=== PATIENT | male | born 1935 | race Caucasian/White ===

== ENCOUNTER 2017-02-16 11:04 | Inpatient (IN) | payer MEDICARE, MEDICAID ==
[~2017-02-16] VITALS: Ht 182.9 cm; Wt 74.4 kg
[2017-02-16] VITALS (7 sets, daily range): BP systolic 167–207; BP diastolic 74–95; PULSE 69–88; RESP 16–22; TEMP 98.5–100.1; O2SAT 92–93
[~2017-02-16 11:04] MED LIST: AMLO10 PO; BACT800T5 PO; GLIP5 PO; PRAV40TA PO; PROS5TAB2 PO
--- NOTE | 2017-02-16 11:27 | PD ---
HPI Chief Complaint: Headache Time Seen by Provider: 11:09 Travel History International Travel<30 days: No Contact w/Intl Traveler<30days: No Traveled to known affect area: No History of Present Illness HPI The patient is a 81-year-old male who presents to the emergency department via EMS for headache and chest pain. The patient states he's had intermittent anterior chest pain, described as heavy, pressure, and worse with exertion. His symptoms been ongoing for several weeks and progressing. The patient states he had chest pain this morning last proximal one hour and then resolved. He does complain of chest pain that radiates down the right arm, however, complains of chronic right arm pain for the last several months. The patient also describes a headache which started last night, located over the top of the head, throbbing, associated with one episode of nausea and vomiting. The patient denies any diplopia, neck pain, or fever. The patient denies any known history of CAD, states he had a stress test and cardiac catheterization approximately 12 years ago in [place]. He does have a history of hypertension , hyperlipidemia, remote history of tobacco use. The patient states he quit smoking 25 years ago. PFSH Past Medical History Arthritis: No Asthma: No Autoimmune Disease: No Anxiety: No Depression: No Heart Rhythm Problems: No Cancer: No Cardiac Catheterization: Yes (1 STENT) Cardiovascular Problems: Yes (HTN) High Cholesterol: No Chest Pain: Yes Congestive Heart Failure: Yes COPD: Yes Diabetes: Yes Patient Takes Glucophage: No (GLIPIZIED DAILY ) Diminished Hearing: Yes ([place]) Diverticulitis: Yes Endocrine: Yes Gastrointestinal Disorders: Yes (DIVERTICULITIS ) GERD: Yes Genitourinary: Yes Hiatal Hernia: No Hypertension: Yes (NOT MEDICATED AT THIS TIME) Immune Disorder: No Implanted Vascular Access Dvce: Yes Kidney Stones: No Musculoskeletal: Yes Neurologic: No Psychiatric: No Reproductive: No Respiratory: Yes Renal Failure: No Sleep Apnea: No Thyroid Disease: No Ulcer: No Past Surgical History Abdominal Surgery: Yes (COLON RESECTION) AICD: No Arteriovenous Shunt: No Cardiac Surgery: Yes (STENT PLACEMENT) Coronary Artery Bypass Graft: No Coronary Stent: Yes (x1 stent, RCA) Ear Surgery: No Endocrine Surgery: No Eye Surgery: Yes (IMPLANTS) Genitourinary Surgery: Yes (PROSTATE) Insulin Pump: No Joint Replacement: No Neurologic Surgery: No Oral Surgery: No Pacemaker: No Thoracic Surgery: No Other Surgery: Yes Social History Alcohol Use: No Tobacco Use: No (Quit 1989) Substance Use: No Allergies-Medications (Allergen,Severity, Reaction): Coded Allergies: Codeine (Verified Allergy, Severe, Hallucinations, 02/16/17) Reported Meds & Prescriptions Reported Meds & Active Scripts Active Bactrim DS (Sulfamethoxazole-Trimethoprim DS) 1 Tab Tab 1 Tab PO BID Reported Proscar (Finasteride) 5 Mg Tab 5 Mg PO DAILY Glipizide Unknown Strength Tab 5 Mg PO BID Pravachol 40 Mg Tab 40 Mg PO HS Norvasc (Amlodipine Besylate) 10 Mg Tab 10 Mg PO DAILY Review of Systems Except as stated in HPI: all other systems reviewed are Neg General / Constitutional: No: Fever HENT: Positive: Headaches Cardiovascular: Positive: Chest Pain or Discomfort, Dyspnea on exertion, No: Diaphoresis Respiratory: Positive: Shortness of Breath Gastrointestinal: Positive: Nausea, Vomiting, No: Abdominal Pain Musculoskeletal: No: Weakness Neurologic: Positive: Headache, No: Dizziness Physical Exam Narrative GENERAL: Awake, alert, pleasant 81-year-old male who appears his stated age and is in no acute respiratory distress. SKIN: Focused skin assessment warm/dry. HEAD: Atraumatic. Normocephalic. EYES: Pupils equal and round. Pupils are 4 mm bilateral and reactive. EOMs are intact. ENT: No nasal bleeding or discharge. Mucous membranes pink and moist. NECK: Trachea midline. No JVD. No meningeal signs. CARDIOVASCULAR: Regular rate and rhythm. No murmur appreciated. RESPIRATORY: No accessory muscle use. Clear to auscultation. Breath sounds equal bilaterally. GASTROINTESTINAL: Abdomen soft, non-tender, nondistended. No rebound tenderness. MUSCULOSKELETAL: No obvious deformities. No clubbing. No cyanosis. No edema. NEUROLOGICAL: Awake and alert. No obvious cranial nerve deficits. Motor grossly within normal limits. Normal speech. Nonfocal. PSYCHIATRIC: Appropriate mood and affect; insight and judgment normal. Data Data Last Documented VS Vital Signs Date Time Temp Pulse Resp B/P Pulse Ox O2 Delivery O2 Flow Rate FiO2 02/16/17 12:48 69 16 179/80 Room Air 02/16/17 11:22 93 02/16/17 11:11 100.1 Orders Electrocardiogram (02/16/17 11:19) B-Type Natriuretic Peptide (02/16/17 11:19) Ckmb (Isoenzyme) Profile (02/16/17 11:19) Complete Blood Count With Diff (02/16/17 11:19) Comprehensive Metabolic Panel (02/16/17 11:19) Magnesium (Mg) (02/16/17 11:19) Prothrombin Time / Inr (Pt) (02/16/17 11:19) Act Partial Throm Time (Ptt) (02/16/17 11:19) Troponin I (02/16/17 11:19) Lipase (02/16/17 11:19) Chest, Single Ap (02/16/17 11:19) Ecg Monitoring (02/16/17 11:19) Bilateral Bp Monitoring (02/16/17 11:19) Iv Access Insert/Monitor (02/16/17 11:19) Oximetry (02/16/17 11:19) Oxygen Administration (02/16/17 11:19) Morphine Inj (Morphine Inj) (02/16/17 11:30) Sodium Chloride 0.9% Flush (Ns Flush) (02/16/17 11:30) Sodium Chlorid 0.9% 500 Ml Inj (Ns 500 M (02/16/17 11:30) Ondansetron Inj (Zofran Inj) (02/16/17 11:30) Labetalol Inj (Trandate Inj) (02/16/17 11:30) Ct Brain W/O Iv Contrast(Rout) (02/16/17 ) Blood Culture (02/16/17 12:03) Lactic Acid (02/16/17 12:03) Aspirin Chew (Aspirin Chew) (02/16/17 12:15) Urinalysis - C+S If Indicated (02/16/17 12:18) Influenzae A/B Antigen (02/16/17 12:18) Acetaminophen (Tylenol) (02/16/17 12:30) Ceftriaxone Inj (Rocephin Inj) (02/16/17 13:15) Azithromycin Inj (Zithromax Inj) (02/16/17 13:15) Urine Culture (02/16/17 13:03) Admit Order (Ed Use Only) (02/16/17 13:54) Labs Laboratory Tests Test 02/16/17 02/16/17 02/16/17 11:20 12:26 13:03 White Blood Count 25.8 TH/MM3 Red Blood Count 4.42 MIL/MM3 Hemoglobin 13.6 GM/DL Hematocrit 40.9 % Mean Corpuscular Volume 92.5 FL Mean Corpuscular Hemoglobin 30.8 PG Mean Corpuscular Hemoglobin 33.3 % Concent Red Cell Distribution Width 13.7 % Platelet Count 221 TH/MM3 Mean Platelet Volume 8.6 FL Neutrophils (%) (Auto) 85.7 % Lymphocytes (%) (Auto) 5.4 % Monocytes (%) (Auto) 8.5 % Eosinophils (%) (Auto) 0.2 % Basophils (%) (Auto) 0.2 % Neutrophils # (Auto) 22.1 TH/MM3 Lymphocytes # (Auto) 1.4 TH/MM3 Monocytes # (Auto) 2.2 TH/MM3 Eosinophils # (Auto) 0.1 TH/MM3 Basophils # (Auto) 0.1 TH/MM3 CBC Comment AUTO DIFF Differential Total Cells 100 Counted Neutrophils % (Manual) 89 % Lymphocytes % 1 % Monocytes % 10 % Neutrophils # (Manual) 23.0 TH/MM3 Differential Comment FINAL DIFF MANUAL Platelet Estimate NORMAL Platelet Morphology Comment NORMAL Red Cell Morphology Comment NORMAL Prothrombin Time 12.6 SEC Prothromb Time International 1.1 RATIO Ratio Activated Partial 33.1 SEC Thromboplast Time Sodium Level 136 MEQ/L Potassium Level 4.4 MEQ/L Chloride Level 100 MEQ/L Carbon Dioxide Level 24.6 MEQ/L Anion Gap 11 MEQ/L Blood Urea Nitrogen 26 MG/DL Creatinine 1.62 MG/DL Estimat Glomerular Filtration 41 ML/MIN Rate Random Glucose 149 MG/DL Calcium Level 9.5 MG/DL Magnesium Level 2.0 MG/DL Total Bilirubin 1.2 MG/DL Aspartate Amino Transf 17 U/L (AST/SGOT) Alanine Aminotransferase 20 U/L (ALT/SGPT) Alkaline Phosphatase 53 U/L Total Creatine Kinase 68 U/L Troponin I LESS THAN 0.02 NG/ML B-Type Natriuretic Peptide 127 PG/ML Total Protein 7.1 GM/DL Albumin 3.8 GM/DL Lipase 65 U/L Lactic Acid Level 1.8 mmol/L Urine Color YELLOW Urine Turbidity HAZY Urine pH 5.5 Urine Specific [place] 1.015 Urine Protein 30 mg/dL Urine Glucose (UA) NEG mg/dL Urine Ketones TRACE mg/dL Urine Occult Blood MOD Urine Nitrite NEG Urine Bilirubin NEG Urine Urobilinogen LESS THAN 2.0 MG/DL Urine Leukocyte Esterase MOD Urine RBC 107 /hpf Urine WBC 20 /hpf Urine WBC Clumps RARE Urine Amorphous Sediment RARE Urine Bacteria RARE /hpf Urine Mucus FEW /lpf Microscopic Urinalysis Comment CULTURE INDICATED MDM Medical Decision Making Medical Screen Exam Complete: Yes Emergency Medical Condition: Yes Medical Record Reviewed: Yes Interpretation(s) EKG reveals normal sinus rhythm with a rate of 76. Inverted T waves noted in lead V6. Last Impressions Chest X-Ray 02/16/17 1119 Signed Impressions: Service Date/Time: Thursday, February 16, 2017 11:34 - CONCLUSION: 1. Chronic scarring at the lung bases without significant change. 2. No acute cardiopulmonary disease. There is no evidence of pulmonary edema. Chandan Maharaj MD Head CT 02/16/17 0000 Signed Impressions: Service Date/Time: Thursday, February 16, 2017 11:36 - CONCLUSION: Negative noncontrast head CT. Chandan Maharaj MD Laboratory Tests Test 02/16/17 02/16/17 02/16/17 11:20 12:26 13:03 White Blood Count 25.8 TH/MM3 Red Blood Count 4.42 MIL/MM3 Hemoglobin 13.6 GM/DL Hematocrit 40.9 % Mean Corpuscular Volume 92.5 FL Mean Corpuscular Hemoglobin 30.8 PG Mean Corpuscular Hemoglobin 33.3 % Concent Red Cell Distribution Width 13.7 % Platelet Count 221 TH/MM3 Mean Platelet Volume 8.6 FL Neutrophils (%) (Auto) 85.7 % Lymphocytes (%) (Auto) 5.4 % Monocytes (%) (Auto) 8.5 % Eosinophils (%) (Auto) 0.2 % Basophils (%) (Auto) 0.2 % Neutrophils # (Auto) 22.1 TH/MM3 Lymphocytes # (Auto) 1.4 TH/MM3 Monocytes # (Auto) 2.2 TH/MM3 Eosinophils # (Auto) 0.1 TH/MM3 Basophils # (Auto) 0.1 TH/MM3 CBC Comment AUTO DIFF Differential Total Cells 100 Counted Neutrophils % (Manual) 89 % Lymphocytes % 1 % Monocytes % 10 % Neutrophils # (Manual) 23.0 TH/MM3 Differential Comment FINAL DIFF MANUAL Platelet Estimate NORMAL Platelet Morphology Comment NORMAL Red Cell Morphology Comment NORMAL Prothrombin Time 12.6 SEC Prothromb Time International 1.1 RATIO Ratio Activated Partial 33.1 SEC Thromboplast Time Sodium Level 136 MEQ/L Potassium Level 4.4 MEQ/L Chloride Level 100 MEQ/L Carbon Dioxide Level 24.6 MEQ/L Anion Gap 11 MEQ/L Blood Urea Nitrogen 26 MG/DL Creatinine 1.62 MG/DL Estimat Glomerular Filtration 41 ML/MIN Rate Random Glucose 149 MG/DL Calcium Level 9.5 MG/DL Magnesium Level 2.0 MG/DL Total Bilirubin 1.2 MG/DL Aspartate Amino Transf 17 U/L (AST/SGOT) Alanine Aminotransferase 20 U/L (ALT/SGPT) Alkaline Phosphatase 53 U/L Total Creatine Kinase 68 U/L Troponin I LESS THAN 0.02 NG/ML B-Type Natriuretic Peptide 127 PG/ML Total Protein 7.1 GM/DL Albumin 3.8 GM/DL Lipase 65 U/L Lactic Acid Level 1.8 mmol/L Urine Color YELLOW Urine Turbidity HAZY Urine pH 5.5 Urine Specific [place] 1.015 Urine Protein 30 mg/dL Urine Glucose (UA) NEG mg/dL Urine Ketones TRACE mg/dL Urine Occult Blood MOD Urine Nitrite NEG Urine Bilirubin NEG Urine Urobilinogen LESS THAN 2.0 MG/DL Urine Leukocyte Esterase MOD Urine RBC 107 /hpf Urine WBC 20 /hpf Urine WBC Clumps RARE Urine Amorphous Sediment RARE Urine Bacteria RARE /hpf Urine Mucus FEW /lpf Microscopic Urinalysis Comment CULTURE INDICATED Differential Diagnosis Differential diagnosis includes ACS, hypertensive urgency, hypertensive urgency , intracranial hemorrhage, tension headache, congestive heart failure, deconditioning, cardiomyopathy. Narrative Course IV was established, labs are drawn and sent, and the patient was placed on cardiac telemetry monitoring and continuous pulse oximetry monitoring. EKG was ordered and interpreted. Chest x-ray was obtained. CT of the brain was obtained as patient does have a headache with nausea/vomiting. The patient has increasing dyspnea upon exertion for the last several weeks, this may be related to ACS versus cardiomyopathy versus deconditioning. Chest x-ray reveals scarring, no acute pneumonia. White count was elevated at 25.8. Lactic acid was 1.8. The patient did have a temperature of 100.1. The patient was reevaluated at 1:30 PM, his symptoms have improved. Patient's blood pressure is now with a systolic in the 150s and diastolic in the 70s. The patient was seen Dr. Jacques, however, his insurance changed and he now goes [facility]. The patient no longer sees Dr. Jacques. Therefore, the on-call medical service was paged for admission. The patient will be admitted for complicated UTI with atypical chest pain and leukocytosis. The patient is comfortable with this plan of care and disposition. Sepsis Criteria SIRS Criteria (2 or more): WBC > 08330, < 4000 or > 10% bands Physician Communication Physician Communication I discussed the patient with Dr. Avalos who agrees with admission. Diagnosis Primary Impression: UTI (urinary tract infection) Qualified Code: N39.0 - Urinary tract infection with hematuria, site unspecified Additional Impressions: HTN (hypertension) Qualified Code: I10 - Essential hypertension Atypical chest pain Leukocytosis Qualified Code: D72.829 - Leukocytosis, unspecified type Admitting Information Admitting Physician Requests: Admit Condition: Stable Jacinto Liao MD Feb 16, 2017 11:27
[2017-02-16] MEDS ORDERED: SODIUM CHLORIDE 0.9% FLUSH 10 ML FLUSH IVF PRN ×2 (11:30→15:00)
[2017-02-16] MEDS ORDERED: MORPHINE SULFATE 4 MG/ML INJ IV PUSH ONE (11:30)
[2017-02-16] MEDS ORDERED: SODIUM CHLORID 0.9% 500 ML INJ 500 ML IV ONE (11:30)
[2017-02-16] MEDS ORDERED: LABETALOL HCL 100 MG/20 ML VIAL IV ONE (11:30)
[2017-02-16] MEDS ORDERED: ONDANSETRON HCL 4 MG/2 ML VIAL IV PUSH ONE (11:30)
[2017-02-16 11:46] LABS: AUTOMATED NEUTROPHIL # 22.1 TH/MM3 (1.8-7.7); BASOPHIL # 0.1 TH/MM3 (0-0.2); BASOPHIL % 0.2 % (0.0-2.0); EOSINOPHIL # 0.1 TH/MM3 (0-0.4); EOSINOPHIL % 0.2 % (0.0-4.0); HEMATOCRIT 40.9 % (39.0-51.0); LYMPH % 5.4 % (9.0-44.0); LYMPHOCYTE # 1.4 TH/MM3 (1.0-4.8); MEAN CELL VOLUME 92.5 FL (80.0-100.0); MEAN CORPUSCULAR HEMOGLOBIN 30.8 PG (27.0-34.0); MEAN CORPUSCULAR HGB CONC 33.3 % (32.0-36.0); MONO % 8.5 % (0.0-8.0); NEUT % 85.7 % (16.0-70.0); PLATELET COUNT 221 TH/MM3 (150-450); RED BLOOD COUNT 4.42 MIL/MM3 (4.50-5.90); RED CELL DISTRIBUTION WIDTH 13.7 % (11.6-17.2); WHITE BLOOD COUNT 25.8 TH/MM3 (4.0-11.0)
[2017-02-16 11:48] LABS: HEMO FLAGS AUTO DIFF
[2017-02-16 11:53] LABS: APTT (PATIENT) 33.1 SEC (24.3-30.1); INTERNATIONAL NORMALIZED RATIO 1.1 RATIO; PROTHROMBIN TIME - PATIENT 12.6 SEC (9.8-11.6)
--- NOTE | 2017-02-16 11:55 | RADRPT ---
EXAM DATE/TIME: 02/16/2017 11:36 [facility] COMPARISON: No previous studies available for comparison. INDICATIONS : Headache along with dizziness. Feels lightheaded. Elevated blood pressure RADIATION DOSE: 42.89 CTDIvol (mGy) MEDICAL HISTORY : Hypertension. Cardiovascular disease Diabetes mellitus type 2. SURGICAL HISTORY : None. ENCOUNTER: Initial ACUITY: 1 day PAIN SCALE: 8/10 LOCATION: cranial TECHNIQUE: Multiple contiguous axial images were obtained of the head. Using automated exposure control and adj ustment of the mA and/or kV according to patient size, radiation dose was kept as low as reasonably a chievable to obtain optimal diagnostic quality images. FINDINGS: CEREBRUM: The ventricles are normal for age. No evidence of midline shift, mass lesion, hemorrhage or acute in farction. No extra-axial fluid collections are seen. POSTERIOR FOSSA: The cerebellum and brainstem are intact. The 4th ventricle is midline. The cerebellopontine angle i s unremarkable. EXTRACRANIAL: The visualized portion of the orbits is intact. SKULL: The calvaria is intact. No evidence of skull fracture. CONCLUSION: Negative noncontrast head CT. Chandan Maharaj MD on February 16, 2017 at 11:53 Board Certified Radiologist. This report was verified electronically.
[2017-02-16 12:15] LABS: PLATELET ESTIMATE SMEAR NORMAL (NORMAL); PLATELET MORPHOLOGY NORMAL (NORMAL); POLYS (SEG NEUTROPHILS) 89 % (16-70); SCAN/DIFF FINAL DIFF MANUAL; WBC DIFF SAMPLE 100
[2017-02-16] MEDS ORDERED: ASPIRIN 81 MG CHEW TAB CHEW ONE (12:15)
--- NOTE | 2017-02-16 12:16 | RADRPT ---
EXAM DATE/TIME: 02/16/2017 11:34 [facility] COMPARISON: CHEST SINGLE AP, July 19, 2013, 17:18. INDICATIONS : Chest pain, short of breath. MEDICAL HISTORY : None. SURGICAL HISTORY : None. ENCOUNTER: Initial ACUITY: 2 days PAIN SCORE: 8/10 LOCATION: Bilateral chest FINDINGS: A single view of the chest demonstrates the lungs to be symmetrically aerated without evidence of mas s, infiltrate or effusion. There is chronic scarring again noted the lung bases without significant change. The cardiomediastinal contours are unremarkable. Osseous structures are intact. CONCLUSION: 1. Chronic scarring at the lung bases without significant change. 2. No acute cardiopulmonary disease. There is no evidence of pulmonary edema. Chandan Maharaj MD on February 16, 2017 at 12:13 Board Certified Radiologist. This report was verified electronically.
[2017-02-16 12:23] LABS: ALT (GPT) 20 U/L (12-78); ANION GAP 11 MEQ/L (5-15); AST (GOT) 17 U/L (15-37); BICARBONATE 24.6 MEQ/L (21.0-32.0); BLOOD UREA NITROGEN 26 MG/DL (7-18); CHLORIDE 100 MEQ/L (98-107); GLOMERULAR FILTRATION RATE 41 ML/MIN (>89); POTASSIUM 4.4 MEQ/L (3.5-5.1); SODIUM (NA) 136 MEQ/L (136-145)
[2017-02-16 12:26] LABS: ALKALINE PHOSPHATASE 53 U/L (45-117); TOTAL BILIRUBIN ADULT 1.2 MG/DL (0.2-1.0)
[2017-02-16 12:29] LABS: CREATINE KINASE 68 U/L (39-308)
[2017-02-16] MEDS ORDERED: ACETAMINOPHEN 325 MG TAB PO ONE (12:30)
[2017-02-16] MEDS ORDERED: AZITHROMYCIN INJ 500 MG in SODIUM CHLOR 0.9% 250 ML INJ 250 ML IV ONE (13:15)
[2017-02-16] MEDS ORDERED: cefTRIAXone INJ 1,000 MG in SODIUM CHLORIDE 0.9% INJ 100 ML IV ONE (13:15)
[2017-02-16 13:40] LABS: BACTERIA, URINE RARE /hpf; BLOOD, URINE MOD (NEG); COMMENT (UR) CULTURE INDICATED; CULTURE IF INDICATED CULTURE INDICATED; GLUCOSE,URINE NEG (NEG); KETONE, URINE TRACE mg/dL (NEG); MUCUS URINE FEW /lpf (OCC); NITRITE,URINE NEG (NEG); PH, URINE 5.5 (5.0-8.5); URINE COLOR YELLOW (YELLW/STRAW)
--- NOTE | 2017-02-16 13:47 | EKG ---
Date Performed: 02/16/2017 Time Performed: 11:22:34 PTAGE: 81 years EKG: Sinus rhythm NONSPECIFIC ST & T-WAVE ABNORMALITY BORDERLINE ECG NO PREVIOUS TRACING DOCTOR: Stanford Oakley Interpretating Date/Time 02/16/2017 13:45:12
--- NOTE | 2017-02-16 13:59 | HHI.HP ---
[facility] Primary Care Physician [facility] Admission Diagnosis complicated UTI, leukocytosis, atypical chest pain Diagnoses: International Travel<30 Days: No Contact w/Intl Traveler<30days: No Known Affected Area: No History of Present Illness 81-year-old male with history of cardiac stent in 2009 presents with headache, dizzy spells since last night. Patient states before going to bed last night he had constant 8 out of 10 nonradiating sharp pain at the top of his head. He also started feeling dizzy at about the same time. He states he felt like the room was spinning. He was not able to sleep. He has been getting dizzy for the last 3 months. He normally gets dizzy when he walks. He is not currently dizzy. He does get temporary chest pain from time to time. He complains of 7 out of 10 chest pain which occurred last night. It is in the center of his chest. Nonradiating. It lasted about 1 hour and went away. Currently not in any pain. His food service driver is Dr. Mann, but has not been able to see him for several months because of problems with his insurance. He does feel a little disoriented today. He was trying to use his cell phone and couldn't remember the numbers. Currently he is not confused. Denies headaches now. feels disoriented today. trying to use cell and couldn't figure the numbers. feels less confused now. No headache now. He denies any neck pain. (Jose Antonio Avalos MD R2) Review of Systems Constitutional: COMPLAINS OF: Fever, Dizziness, DENIES: Chills Eyes: DENIES: Blurred vision, Diplopia Respiratory: COMPLAINS OF: Shortness of breath, DENIES: Cough, Sputum production Cardiovascular: COMPLAINS OF: Chest pain (per h&p), DENIES: Palpitations Gastrointestinal: COMPLAINS OF: Abdominal pain (lower abd), DENIES: Black stools, Bloody stools, Constipation Genitourinary: COMPLAINS OF: Hematuria (if he strains or lifts heavy objects), Nocturia (2-3 times a night), DENIES: Urinary frequency, Urgency, Dysuria Musculoskeletal: COMPLAINS OF: Joint pain (right shoulder) Neurologic: COMPLAINS OF: Abnormal gait (dizzy spells when walking. ) Psychiatric: COMPLAINS OF: Confusion (Jose Antonio Avalos MD R2) Past Family Social History Past Medical History Coronary artery disease, previous stent to right coronary in 2010 Diverticulitis 20 years ago requiring bowel resection Dyslipidemia Type 2 diabetes BPH Chronic muscle spasms- occasionally takes something OTC, but not usually Past Surgical History Prostatectomy for cancer Partial colon resection for diverticulitis Cardiac catheter with stent Cataract surgery Reported Medications Reported Proscar (Finasteride) 5 Mg Tab 5 Mg PO DAILY Glipizide Unknown Strength Tab 5 Mg PO BID Pravachol 40 Mg Tab 40 Mg PO HS Norvasc (Amlodipine Besylate) 10 Mg Tab 10 Mg PO DAILY (Jose Antonio Avalos MD R2) Allergies: Coded Allergies: Codeine (Verified Allergy, Severe, Hallucinations, 02/16/17) Active Ordered Medications Active Medications Acetaminophen 650 mg 650 mg ONCE ONCE PO Last administered on 02/16/17 12:34; Admin Dose 650 MG; Start 02/16/17 at 12:30; Stop 02/16/17 at 12:31; Status DC Aspirin (Aspirin Chew) 162 mg ONCE ONCE CHEW Last administered on 02/16/17 12: 31; Admin Dose 162 MG; Start 02/16/17 at 12:15; Stop 02/16/17 at 12:16; Status DC Azithromycin/ Sodium Chloride (Zithromax Inj/ NS 250 ml Inj) 250 ml @ 250 mls/ hr ONCE ONCE IV; Start 02/16/17 at 13:15; Stop 02/16/17 at 14:14 Ceftriaxone Sodium 1000 mg/ Sodium Chloride 100 ml @ 200 mls/hr ONCE ONCE IV; Start 02/16/17 at 13:15; Stop 02/16/17 at 13:44; Status DC Labetalol HCl (Trandate Inj) 10 mg ONCE ONCE IV; Start 02/16/17 at 11:30; Stop 02/16/17 at 11:31; Status DC Morphine Sulfate (Morphine Inj) 4 mg ONCE ONCE IV PUSH Last administered on 12:32; Admin Dose 4 MG; Start 02/16/17 at 11:30; Stop 02/16/17 at 11:31 ; Status DC Ondansetron HCl (Zofran Inj) 4 mg ONCE ONCE IV PUSH Last administered on 12:31; Admin Dose 4 MG; Start 02/16/17 at 11:30; Stop 02/16/17 at 11:31; Status DC Sodium Chloride (NS 500 ml Inj) 500 ml @ 500 mls/hr ONCE ONCE IV Last administered on 02/16/17t 12:32; Admin Dose 500 MLS/HR; Start 02/16/17 at 11:30 ; Stop 02/16/17 at 12:29; Status DC Sodium Chloride 2 ml 2 ml UNSCH PRN IVF; Start 02/16/17 at 11:30 Family History Mom- no heart history Dad- no heart history Sister- from unknown cancer. Social History Lives in [facility]. Niece in [place]. Lives alone. Quit smoking in 1989. No alcohol. No illicit drugs. (Jose Antonio Avalos MD R2) Physical Exam Vital Signs Vital Signs Date Time Temp Pulse Resp B/P Pulse Ox O2 Delivery O2 Flow Rate FiO2 02/16/17 12:48 69 16 179/80 Room Air 02/16/17 12:35 75 17 204/95 Room Air 02/16/17 11:24 207/86 174/79 02/16/17 11:22 22 93 Room Air 02/16/17 11:22 93 Room Air 02/16/17 11:11 100.1 79 22 207/86 Physical Exam GENERAL: This is a well-nourished, well-developed patient, in no apparent distress. SKIN: No rashes, ecchymoses or lesions. Cool and dry. HEAD: Atraumatic. Normocephalic. No temporal or scalp tenderness. EYES: Pupils equal round and reactive. Extraocular motions intact. No scleral icterus. No injection or drainage. ENT: Nose without bleeding, purulent drainage or septal hematoma. Throat without erythema, tonsillar hypertrophy or exudate. Uvula midline. Airway patent. NECK: Trachea midline. No JVD or lymphadenopathy. Supple, nontender, no meningeal signs. CARDIOVASCULAR: Regular rate and rhythm without murmurs, gallops, or rubs. RESPIRATORY: Clear to auscultation. Breath sounds equal bilaterally. No wheezes , rales, or rhonchi. GASTROINTESTINAL: Abdomen soft, non-tender, nondistended. No hepato-splenomegaly , or palpable masses. No guarding. MUSCULOSKELETAL: Extremities without clubbing, cyanosis, or edema. No joint tenderness, effusion, or edema noted. No calf tenderness. Negative Homans sign bilaterally. NEUROLOGICAL: Awake and alert. Cranial nerves II through XII intact. Motor and sensory grossly within normal limits. Five out of 5 muscle strength in all muscle groups. Normal speech. Laboratory Laboratory Tests Test 02/16/17 02/16/17 02/16/17 11:20 12:26 13:03 White Blood Count 25.8 Red Blood Count 4.42 Hemoglobin 13.6 Hematocrit 40.9 Mean Corpuscular Volume 92.5 Mean Corpuscular Hemoglobin 30.8 Mean Corpuscular Hemoglobin 33.3 Concent Red Cell Distribution Width 13.7 Platelet Count 221 Mean Platelet Volume 8.6 Neutrophils (%) (Auto) 85.7 Lymphocytes (%) (Auto) 5.4 Monocytes (%) (Auto) 8.5 Eosinophils (%) (Auto) 0.2 Basophils (%) (Auto) 0.2 Neutrophils # (Auto) 22.1 Lymphocytes # (Auto) 1.4 Monocytes # (Auto) 2.2 Eosinophils # (Auto) 0.1 Basophils # (Auto) 0.1 CBC Comment AUTO DIFF Differential Total Cells 100 Counted Neutrophils % (Manual) 89 Lymphocytes % 1 Monocytes % 10 Neutrophils # (Manual) 23.0 Differential Comment FINAL DIFF MANUAL Platelet Estimate NORMAL Platelet Morphology Comment NORMAL Red Cell Morphology Comment NORMAL Prothrombin Time 12.6 Prothromb Time International 1.1 Ratio Activated Partial 33.1 Thromboplast Time Sodium Level 136 Potassium Level 4.4 Chloride Level 100 Carbon Dioxide Level 24.6 Anion Gap 11 Blood Urea Nitrogen 26 Creatinine 1.62 Estimat Glomerular Filtration 41 Rate Random Glucose 149 Calcium Level 9.5 Magnesium Level 2.0 Total Bilirubin 1.2 Aspartate Amino Transf 17 (AST/SGOT) Alanine Aminotransferase 20 (ALT/SGPT) Alkaline Phosphatase 53 Total Creatine Kinase 68 Troponin I LESS THAN 0.02 B-Type Natriuretic Peptide 127 Total Protein 7.1 Albumin 3.8 Lipase 65 Lactic Acid Level 1.8 Urine Color YELLOW Urine Turbidity HAZY Urine pH 5.5 Urine Specific [place] 1.015 Urine Protein 30 Urine Glucose (UA) NEG Urine Ketones TRACE Urine Occult Blood MOD Urine Nitrite NEG Urine Bilirubin NEG Urine Urobilinogen LESS THAN 2.0 Urine Leukocyte Esterase MOD Urine RBC 107 Urine WBC 20 Urine WBC Clumps RARE Urine Amorphous Sediment RARE Urine Bacteria RARE Urine Mucus FEW Microscopic Urinalysis Comment CULTURE INDICATED Date/Time Procedure Status Source Growth 02/16/17 13:03 Urine Culture Received Urine Clean Catch Pending 02/16/17 12:30 Aerobic Blood Culture Received Blood Peripheral Pending 02/16/17 12:30 Anaerobic Blood Culture Received Blood Peripheral Pending 02/16/17 12:25 Influenza Types A,B Antigen (JULIETA) - Final Complete Nasal Aspirate NEGATIVE FOR FLU A AND B ANTIGEN.... (Jose Antonio Avalos MD R2) Result Diagram: 02/16/17 1120 02/16/17 1120 Imaging Last Impressions Chest X-Ray 02/16/17 1119 Signed Impressions: Service Date/Time: Thursday, February 16, 2017 11:34 - CONCLUSION: 1. Chronic scarring at the lung bases without significant change. 2. No acute cardiopulmonary disease. There is no evidence of pulmonary edema. Chandan Maharaj MD Head CT 02/16/17 0000 Signed Impressions: Service Date/Time: Thursday, February 16, 2017 11:36 - CONCLUSION: Negative noncontrast head CT. Chandan Maharaj MD (Jose Antonio Avalos MD R2) Assessment and Plan Assessment and Plan 81-year-old male with past history of coronary artery disease including stent placement presents with a leukocytosis, urinary tract infection, questionable pneumonia. Code Status DNR Discussed Condition With Dr. Suresh Stephen (Jose Antonio Avalos MD R2) Attending Attestation THIS CASE WAS DISCUSSED WITH THE RESIDENT PHYSICIANS. I HAVE REVIEWED THE RECORD AND AGREE WITH THE ABOVE NOTE AND PLAN OF CARE WAS DISCUSSED. I HAVE AUTHORIZED THE ORDER FOR ADMISSION TO AN IN-PATIENT STATUS. (Regan Prince MD) Problem List: (1) Atypical chest pain Status: Acute Plan: AP Chest x-ray shows chronic scarring at the lung bases. Independent review concerning for right midlung pneumonia. Will obtain PA/ lateral view for clarification. Troponins negative 1. Trend troponins and EKGs 1730, 2330 Currently resolved. Antibiotics to cover for community-acquired pneumonia. Continue ceftriaxone 1 g every 24 hours (started 02/16) Continue azithromycin 500 mg daily (started 02/16) Blood cultures pending. Legionella and pneumococcal antigen pending Sputum culture pending (2) UTI (urinary tract infection) Status: Acute Plan: Urinalysis reveals positive leukocyte esterase, white blood cell clumps. Urine culture pending. Ceftriaxone as above (3) ALDA (acute kidney injury) Status: Acute Plan: Creatinine increased from the patient's baseline. Likely prerenal Normal saline 100 mL's per hour (4) Headache Status: Acute Plan: Headache and dizziness possibly resulting from current urinary tract infection. Head CT negative. Currently resolved. No meningeal symptoms. If patient continues to have headache, dizziness, consider brain MRI. (5) Dizziness Status: Acute Plan: Likely related to urinary tract infection. Expect improvement with treatment. 2-D echo ordered Physical therapy Obtain orthostatics If patient remains symptomatic, consider brain MRI (6) FEN/PPX Status: Acute Plan: Fluids: Normal saline 100 mg per hour Electrolytes: Monitor and replace when necessary Nutrition: Heart healthy diet Prophylaxis: Heparin 5000 units twice a day Chronic medical problems: Hyperlipidemia: Continue statin High blood pressure: Amlodipine 10 mg daily BPH: Finasteride 5 mg by mouth daily Diabetes: Hold home medications. Sliding scale insulin (Jose Antonio Avalos MD R2) Physician Certification 2 Midnight Certification Type: Admission for Inpatient Services Order for Inpatient Services The services are ordered in accordance with Medicare regulations or non- Medicare payer requirements, as applicable. In the case of services not specified as inpatient-only, they are appropriately provided as inpatient services in accordance with the 2-midnight benchmark. Estimated LOS (days): 2 days is the estimated time the patient will need to remain in the hospital, assuming treatment plan goals are met and no additional complications. Post-Hospital Plan: Not yet determined (Jose Antonio Avalos MD R2) Problem Qualifiers (1) UTI (urinary tract infection): Qualified Code: N39.0 - Urinary tract infection with hematuria, site unspecified Jose Antonio Avalos MD R2 Feb 16, 2017 13:59 Regan Prince MD Feb 17, 2017 10:56
[2017-02-16] MEDS ORDERED: ONDANSETRON HCL 4 MG/2 ML VIAL IVP PRN (15:00)
[2017-02-16] MEDS ORDERED: ACETAMINOPHEN 325 MG TAB PO PRN (15:00)
[2017-02-16] MEDS ORDERED: SODIUM CHLORIDE 0.9% FLUSH 10 ML FLUSH IV FLUSH PRN (15:00)
[2017-02-16] MEDS ORDERED: MAGNESIUM HYDROXIDE SUSP 30 ML CUP PO PRN (15:00)
[2017-02-16] MEDS ORDERED: NALOXONE HCL 0.4 MG/ML AMP IV PRN (15:00)
--- NOTE | 2017-02-16 15:55 | RADRPT ---
EXAM DATE/TIME: 02/16/2017 15:28 [facility] COMPARISON: CHEST SINGLE AP, February 16, 2017, 11:34. CHEST PA & LAT, May 16, 2015, 20:42. INDICATIONS : Intermittent chest pain and dizziness. MEDICAL HISTORY : Hypertension. SURGICAL HISTORY : Coronary artery stent. ENCOUNTER: Initial ACUITY: 1 month PAIN SCORE: 8/10 LOCATION: Bilateral chest FINDINGS: Moderate bibasilar parenchymal changes are evident, progressed from the study over the same day. The re is mild interstitial edema present. Heart is normal in size. There is no pneumothorax. CONCLUSION: 1. Bibasilar consolidative changes. 2. Mild interstitial edema. Eligio Conti MD FACR on February 16, 2017 at 15:48 Board Certified Radiologist. This report was verified electronically.
[2017-02-16] MEDS ORDERED: GLUCAGON 1 MG/ML VIAL OTHER PRN (16:00)
[2017-02-16] MEDS: INSULIN ASPART SUPPLEMENTAL SCALE SQ SCH ×2 (16:00→20:59)
[2017-02-16] MEDS ORDERED: DEXTROSE 50% IN WATER 50 ML VIAL(D50) IV PUSH PRN (16:00)
[2017-02-16] MEDS: SODIUM CHLOR 0.9% 1000 ML INJ 1,000 ML IV SCH ×2 (16:19→22:05)
[2017-02-16] MEDS: HEPARIN SODIUM - SQ 10,000 UNITS/ML VIAL SQ SCH (16:33)
[2017-02-16] MEDS: PRAVASTATIN SOD 40 MG TAB PO SCH (20:59)
[2017-02-16] MEDS: SODIUM CHLORIDE 0.9% FLUSH 10 ML FLUSH IVF SCH (20:59)
[2017-02-16] MEDS ORDERED: SODIUM CHLORIDE 0.9% FLUSH 10 ML FLUSH IV FLUSH SCH (21:00)
[2017-02-17] VITALS (7 sets, daily range): BP systolic 135–171; BP diastolic 60–79; PULSE 69–119; RESP 16–22; TEMP 98–99.6; O2SAT 90–96
[2017-02-17] MEDS ORDERED: hydrALAZINE HCL 10 MG TAB PO PRN (01:15)
[2017-02-17] MEDS: MORPHINE SULFATE 4 MG/ML INJ IV PUSH PRN (01:36)
[2017-02-17] MEDS: HEPARIN SODIUM - SQ 10,000 UNITS/ML VIAL SQ SCH ×2 (01:44→15:09)
[2017-02-17] MEDS: INSULIN ASPART SUPPLEMENTAL SCALE SQ SCH ×4 (06:04→20:49)
[2017-02-17] MEDS: SODIUM CHLORIDE 0.9% FLUSH 10 ML FLUSH IVF SCH ×2 (08:12→20:48)
[2017-02-17] MEDS: AZITHROMYCIN 250 MG TAB PO SCH (08:12)
[2017-02-17] MEDS: FINASTERIDE 5 MG TAB PO SCH (08:12)
[2017-02-17 10:15] LABS: AUTOMATED NEUTROPHIL # 24.8 TH/MM3 (1.8-7.7); BASOPHIL % 0.1 % (0.0-2.0); EOSINOPHIL # 0.1 TH/MM3 (0-0.4); EOSINOPHIL % 0.3 % (0.0-4.0); HEMATOCRIT 39.7 % (39.0-51.0); LYMPH % 5.7 % (9.0-44.0); LYMPHOCYTE # 1.6 TH/MM3 (1.0-4.8); MEAN CELL VOLUME 93.8 FL (80.0-100.0); MEAN CORPUSCULAR HEMOGLOBIN 30.5 PG (27.0-34.0); MEAN CORPUSCULAR HGB CONC 32.5 % (32.0-36.0); MONO % 8.2 % (0.0-8.0); NEUT % 85.7 % (16.0-70.0); PLATELET COUNT 207 TH/MM3 (150-450); RED BLOOD COUNT 4.23 MIL/MM3 (4.50-5.90); RED CELL DISTRIBUTION WIDTH 13.9 % (11.6-17.2); WHITE BLOOD COUNT 28.9 TH/MM3 (4.0-11.0)
[2017-02-17 10:22] LABS: HEMO FLAGS AUTO DIFF
--- NOTE | 2017-02-17 10:56 | HHI.FPPN ---
Subjective Remarks Patient's blood pressure was elevated overnight he continued to have a headache and was given 10 mg of hydralazine and 2 mg of morphine at approximately 1:30 in the morning. Since that time, he states that he is felt relatively well and has no complaints this morning. Further discussion with him shows that he did not take any of his blood pressure medications yesterday prior to arrival to the emergency department. His headache is nearly resolved and he denies any symptoms such as chest pain, palpitations, or shortness of breath. He remains afebrile, blood pressure is better controlled this morning and overall he states he is feeling relatively well. In summary this is an 81-year-old male presented to the emergency department with headaches, dizziness, and some confusion yesterday. He states that on the night prior to arrival, he had a constant 8/10 headache located at the top of his head associated with some dizziness. He was not able to sleep well and he states that he felt some intermittent substernal chest pain as well. The chest pain is described as substernal in the center of his chest, nonradiating and not associated with any activity or exercise. It self resolves after approximately 1 hour. At the time of arrival to the emergency department, he did not have any chest pain. As far as the confusion, this is relatively new to him and he noticed this when he was having difficulty using his cell phone. Past Medical History Coronary artery disease, previous stent to right coronary in 2009 Diverticulitis 20 years ago requiring bowel resection Dyslipidemia Type 2 diabetes BPH Chronic muscle spasms- occasionally takes something OTC, but not usually Past Surgical History Prostatectomy for cancer Partial colon resection for diverticulitis Cardiac catheter with stent Cataract surgery Family History Mom- no heart history Dad- no heart history Sister- from unknown cancer. Social History Lives in [facility]. Niece in [place]. Lives alone. Quit smoking in 1989. No alcohol. No illicit drugs Objective Vitals Vital Signs Date Time Temp Pulse Resp B/P Pulse Ox O2 Delivery O2 Flow Rate FiO2 02/17/17 08:19 74 02/17/17 08:15 Room Air 02/17/17 08:00 98.0 78 16 135/60 95 02/17/17 04:00 99.6 96 20 146/67 92 02/17/17 00:00 98.3 119 22 171/79 92 02/16/17 20:00 99.7 88 18 167/89 92 02/16/17 20:00 Room Air 02/16/17 18:00 98.5 71 18 170/74 93 02/16/17 12:48 69 16 179/80 Room Air 02/16/17 12:40 16 02/16/17 12:35 75 17 204/95 Room Air 02/16/17 11:24 207/86 174/79 02/16/17 11:22 22 93 Room Air 02/16/17 11:22 93 Room Air 02/16/17 11:11 100.1 79 22 207/86 I/O 02/16/17 02/16/17 02/16/17 02/17/17 02/17/17 02/17/17 07:00 15:00 23:00 07:00 15:00 23:00 Intake Total 240 ml 120 ml Output Total 350 ml Balance 240 ml -230 ml Intake Oral 240 ml 120 ml Output Urine Total 350 ml # Voids 1 1 # Bowel Movements 0 0 Result Diagram: 02/17/17 0901 02/16/17 1120 Imaging Last 48 hours Impressions Chest X-Ray 02/16/17 1119 Signed Impressions: Service Date/Time: Thursday, February 16, 2017 11:34 - CONCLUSION: 1. Chronic scarring at the lung bases without significant change. 2. No acute cardiopulmonary disease. There is no evidence of pulmonary edema. Chandan Maharaj MD Head CT 02/16/17 0000 Signed Impressions: Service Date/Time: Thursday, February 16, 2017 11:36 - CONCLUSION: Negative noncontrast head CT. Chandan Maharaj MD Chest X-Ray 02/16/17 0000 Signed Impressions: Service Date/Time: Thursday, February 16, 2017 15:28 - CONCLUSION: 1. Bibasilar consolidative changes. 2. Mild interstitial edema. Eligio Conti MD FACR Objective Remarks GENERAL: This is a well-nourished, well-developed patient, in no apparent distress. SKIN: No rashes, ecchymoses or lesions. Cool and dry. NECK: Trachea midline. No JVD or lymphadenopathy. CARDIOVASCULAR: Regular rate and rhythm without murmurs, gallops, or rubs. RESPIRATORY: Clear to auscultation. Breath sounds equal bilaterally. No wheezes , rales, or rhonchi. GASTROINTESTINAL: Abdomen soft, non-tender, nondistended. MUSCULOSKELETAL: Extremities without clubbing, cyanosis, or edema. NEUROLOGICAL: Awake and alert. Normal speech. A/P Assessment and Plan 81-year-old male with past history of coronary artery disease including stent placement presents with a leukocytosis, urinary tract infection, questionable pneumonia. Problem List: (1) Community acquired pneumonia Status: Acute Plan: Atypical chest pain could be related to possible community-acquired pneumonia - Chest x-ray shows bibasilar consolidative changes with mild interstitial edema ACS evaluation including cardiac troponins 3 and serial EKGs were within normal limits He is not currently in any chest pain and appears to be doing well Antibiotic for community-acquired pneumonia has been started: Rocephin 1 g IV every 24 hours Azithromycin 500 mg by mouth every 24 hours Blood cultures pending. Sputum cultures ordered and pending Legionella and pneumococcal antigen negative (2) UTI (urinary tract infection) Status: Acute Plan: Urinalysis reveals positive leukocyte esterase, white blood cell clumps. Urine culture pending. Antibiotics as below: Rocephin 1 g IV every 24 hours (02/16 - ) Azithromycin 500 mg by mouth every 24 hours (02/16 - ) (3) HTN (hypertension) Status: Acute Plan: Blood pressure elevated overnight requiring hydralazine 10 mg IV 1 Patient did not take his blood pressure medication on the day of admission Restart home blood pressure medications amlodipine 10 mg by mouth daily - Hydralazine 10 mg IV every 6 hours as needed for high blood pressure (4) ALDA (acute kidney injury) Status: Acute Plan: Creatinine increased from the patient's baseline. Likely prerenal due to acute infection - Baseline creatinine appears to be around 1.3 Normal saline 100 mL's per hour Repeat BMP pending this morning (5) Headache Status: Acute Plan: Headache and dizziness possibly resulting from elevated blood pressure and acute illness Head CT negative. Currently resolved. No meningeal symptoms. If patient continues to have headache, dizziness, consider brain MRI. (6) Dizziness Status: Acute Plan: Likely related to urinary tract infection. Expect improvement with treatment. Physical therapy Obtain orthostatics If patient remains symptomatic, consider brain MRI (7) FEN/PPX Status: Acute Plan: Fluids: Normal saline 100 mg per hour Electrolytes: Monitor and replace when necessary Nutrition: Heart healthy diet Prophylaxis: Heparin 5000 units twice a day Chronic medical problems: Hyperlipidemia: Continue statin BPH: Finasteride 5 mg by mouth daily Diabetes: Hold home medications. Sliding scale insulin Problem Qualifiers (1) UTI (urinary tract infection): Qualified Code: N39.0 - Urinary tract infection with hematuria, site unspecified (2) HTN (hypertension): Qualified Code: I10 - Essential hypertension Regan Prince MD Feb 17, 2017 10:56
[2017-02-17 11:04] LABS: ANION GAP 9 MEQ/L (5-15); AST (GOT) 17 U/L (15-37); BLOOD UREA NITROGEN 28 MG/DL (7-18); CHLORIDE 100 MEQ/L (98-107); GLOMERULAR FILTRATION RATE 39 ML/MIN (>89); POTASSIUM 4.2 MEQ/L (3.5-5.1); SODIUM (NA) 134 MEQ/L (136-145)
[2017-02-17 11:07] LABS: ALKALINE PHOSPHATASE 61 U/L (45-117); ALT (GPT) 17 U/L (12-78); TOTAL BILIRUBIN ADULT 0.9 MG/DL (0.2-1.0)
[2017-02-17] MEDS: cefTRIAXone INJ 1,000 MG in SODIUM CHLORIDE 0.9% INJ 100 ML IV SCH (11:38)
[2017-02-17] MEDS: SODIUM CHLOR 0.9% 1000 ML INJ 1,000 ML IV SCH (11:46)
[2017-02-17 12:11] LABS: BANDS 9 % (0-6); NEUTROPHIL # MANUAL DIFF 23.1 TH/MM3 (1.8-7.7); POLYS (SEG NEUTROPHILS) 71 % (16-70); WBC DIFF SAMPLE 100
[2017-02-17 12:12] LABS: PLATELET ESTIMATE SMEAR NORMAL (NORMAL); PLATELET MORPHOLOGY NORMAL (NORMAL); SCAN/DIFF FINAL DIFF MANUAL
--- NOTE | 2017-02-17 19:21 | EKG ---
Date Performed: 02/16/2017 Time Performed: 17:38:16 PTAGE: 81 years EKG: Sinus rhythm WITH FIRST DEGREE AV BLOCK NONSPECIFIC ST & T-WAVE ABNORMALITY ABNORMAL ECG PREVIOUS TRACING : 02/16/2017 11.22 Compared to prior tracing no significant change DOCTOR: Enmanuel Mann Interpretating Date/Time 02/17/2017 19:20:01
[2017-02-17] MEDS: PRAVASTATIN SOD 40 MG TAB PO SCH (20:49)
[2017-02-18] VITALS (8 sets, daily range): BP systolic 144–171; BP diastolic 65–75; PULSE 76–94; RESP 18–20; TEMP 97.9–100.4; O2SAT 91–96
[2017-02-18] MEDS: HEPARIN SODIUM - SQ 10,000 UNITS/ML VIAL SQ SCH ×2 (03:06→16:30)
[2017-02-18] MEDS: MORPHINE SULFATE 4 MG/ML INJ IV PUSH PRN (04:35)
[2017-02-18] MEDS: INSULIN ASPART SUPPLEMENTAL SCALE SQ SCH ×4 (06:16→20:51)
--- NOTE | 2017-02-18 08:13 | HHI.FF ---
Face to Face Verification Diagnosis: (1) Community acquired pneumonia Physical Therapy Order: Evaluate and Treat, Improve ambulation, Strength and gait training Home Health Nursing Order: Medical education Signs/symptoms of disease process Nursing assessment with vital signs I have seen patient Gurwinder Morales on 02/18/17. My clinical findings support the need for the requested home health care services because: Ltd mobility - disease progression Patient has SOB Limited ability to care for self High risk of falls I certify that my clinical findings support that this patient is homebound because: Unsteady gait/balance Unsafe to leave home unassisted Jose Antonio Avalos MD R2 Feb 18, 2017 08:13
--- NOTE | 2017-02-18 08:59 | HHI.FPPN ---
Subjective Remarks Patient states he is slightly better than yesterday. He continues to complain of atypical chest pain which is constant. It is located in the center of his chest, pointing to his sternum. Nonradiating. He has a "sick" feeling in the pit of the stomach. He complains of continued weakness. States his dizziness is improved. Denies fevers, chills, nausea, vomiting, diarrhea. (Jose Antonio Avalos MD R2) Objective Vitals Vital Signs Date Time Temp Pulse Resp B/P Pulse Ox O2 Delivery O2 Flow Rate FiO2 02/18/17 08:00 99.1 76 18 171/75 95 02/18/17 04:00 99.3 83 18 144/65 93 02/18/17 00:00 99.4 76 18 149/67 96 02/17/17 20:49 Nasal Cannula 3.00 02/17/17 20:00 69 02/17/17 20:00 99.2 75 18 139/64 96 02/17/17 18:02 90 Nasal Cannula 3.00 02/17/17 16:00 99.1 79 16 153/70 90 02/17/17 12:00 98.4 75 16 137/63 90 02/17/17 11:39 Nasal Cannula 2.00 I/O 02/17/17 02/17/17 02/17/17 02/18/17 02/18/17 02/18/17 07:00 15:00 23:00 07:00 15:00 23:00 Intake Total 120 ml 480 ml 240 ml 240 ml Output Total 350 ml 250 ml 350 ml Balance -230 ml 480 ml -10 ml -110 ml Intake Oral 120 ml 480 ml 240 ml 240 ml Output Urine Total 350 ml 250 ml 350 ml # Voids 1 3 # Bowel Movements 0 0 0 0 (Jose Antonio Avalos MD R2) Result Diagram: 02/17/1790002/17/17900 Objective Remarks GENERAL: This is a well-nourished, well-developed patient, in no apparent distress. SKIN: No rashes, ecchymoses or lesions. Cool and dry. NECK: Trachea midline. No JVD or lymphadenopathy. CARDIOVASCULAR: Regular rate and rhythm without murmurs, gallops, or rubs. RESPIRATORY: Clear to auscultation. Breath sounds equal bilaterally. No wheezes , rales, or rhonchi. GASTROINTESTINAL: Abdomen soft, non-tender, nondistended. MUSCULOSKELETAL: Extremities without clubbing, cyanosis, or edema. NEUROLOGICAL: Awake and alert. Normal speech. (Jose Antonio Avalos MD R2) A/P Assessment and Plan 81-year-old male being treated with antibiotics for community acquired pneumonia Discharge Planning Pending clinical improvement. Physical therapy recommends home with home health care PT (Jose Antonio Avalos MD R2) Attending Attestation Pt. examined and case discussed with resident physician I have read the above note and agree with the assessment/plan as discussed with me I was involved in all medical decision making for this patient Regan Prince MD (Regan Prince MD) Problem List: (1) Community acquired pneumonia Status: Acute Plan: Atypical chest pain could be related to possible community-acquired pneumonia - Chest x-ray shows bibasilar consolidative changes with mild interstitial edema ACS evaluation including cardiac troponins 3 and serial EKGs were within normal limits Antibiotic for community-acquired pneumonia has been started: Rocephin 1 g IV every 24 hours (started 02/16-) Azithromycin 500 mg by mouth every 24 hours (started 02/16- Blood cultures 02/16: No growth to date. Sputum cultures ordered and pending Legionella and pneumococcal antigen negative (2) UTI (urinary tract infection) Status: Acute Plan: Urinalysis reveals positive leukocyte esterase, white blood cell clumps. Urine culture 02/16: No growth to date. Antibiotics as below: Rocephin 1 g IV every 24 hours (02/16 - ) Azithromycin 500 mg by mouth every 24 hours (02/16 - ) (3) HTN (hypertension) Status: Acute Plan: Continue home blood pressure medications amlodipine 10 mg by mouth daily - Hydralazine 10 mg IV every 6 hours as needed for high blood pressure (4) ALDA (acute kidney injury) Status: Acute Plan: Creatinine increased from the patient's baseline. Likely prerenal due to acute infection - Baseline creatinine appears to be around 1.3 Normal saline 100 mL's per hour Repeat BMP pending this morning (5) Headache Status: Acute Plan: Headache and dizziness possibly resulting from elevated blood pressure and acute illness Head CT negative. Currently resolved. No meningeal symptoms. If patient continues to have headache, dizziness, consider brain MRI. (6) Dizziness Status: Acute Plan: Likely related to urinary tract infection. Expect improvement with treatment. Physical therapy [facility] wnl If patient remains symptomatic, consider brain MRI (7) FEN/PPX Status: Acute Plan: Fluids: Normal saline 125 mg per hour Electrolytes: Monitor and replace when necessary Nutrition: Heart healthy diet Prophylaxis: Heparin 5000 units twice a day Chronic medical problems: Hyperlipidemia: Continue statin BPH: Finasteride 5 mg by mouth daily Diabetes: Hold home medications. Sliding scale insulin (Jose Antonio Avalos MD R2) Problem Qualifiers (1) UTI (urinary tract infection): Qualified Code: N39.0 - Urinary tract infection with hematuria, site unspecified (2) HTN (hypertension): Qualified Code: I10 - Essential hypertension Jose Antonio Avalos MD R2 Feb 18, 2017 08:59 Regan Prince MD Feb 18, 2017 21:22
[2017-02-18] MEDS: AZITHROMYCIN 250 MG TAB PO SCH (09:30)
[2017-02-18] MEDS: SODIUM CHLOR 0.9% 1000 ML INJ 1,000 ML IV SCH ×2 (09:31→16:36)
[2017-02-18] MEDS: FINASTERIDE 5 MG TAB PO SCH (09:34)
[2017-02-18] MEDS: SODIUM CHLORIDE 0.9% FLUSH 10 ML FLUSH IVF SCH ×2 (09:35→20:52)
[2017-02-18 10:40] LABS: AUTOMATED NEUTROPHIL # 15.6 TH/MM3 (1.8-7.7); BASOPHIL % 0.2 % (0.0-2.0); EOSINOPHIL # 0.2 TH/MM3 (0-0.4); EOSINOPHIL % 1.3 % (0.0-4.0); HEMATOCRIT 35.8 % (39.0-51.0); HEMO FLAGS DIFF FINAL; LYMPH % 6.9 % (9.0-44.0); LYMPHOCYTE # 1.3 TH/MM3 (1.0-4.8); MEAN CELL VOLUME 92.6 FL (80.0-100.0); MEAN CORPUSCULAR HEMOGLOBIN 31.3 PG (27.0-34.0); MEAN CORPUSCULAR HGB CONC 33.8 % (32.0-36.0); MONO % 8.7 % (0.0-8.0); NEUT % 82.9 % (16.0-70.0); PLATELET COUNT 205 TH/MM3 (150-450); RED BLOOD COUNT 3.87 MIL/MM3 (4.50-5.90); RED CELL DISTRIBUTION WIDTH 13.5 % (11.6-17.2); WHITE BLOOD COUNT 18.8 TH/MM3 (4.0-11.0)
[2017-02-18] MEDS: cefTRIAXone INJ 1,000 MG in SODIUM CHLORIDE 0.9% INJ 100 ML IV SCH (11:55)
[2017-02-18 13:12] LABS: POTASSIUM 4.3 MEQ/L (3.5-5.1)
[2017-02-18] MEDS: PRAVASTATIN SOD 40 MG TAB PO SCH (20:51)
[2017-02-19] VITALS (9 sets, daily range): BP systolic 140–178; BP diastolic 65–86; PULSE 79–92; RESP 16–20; TEMP 98.2–100.8; O2SAT 90–97
[2017-02-19] MEDS: HEPARIN SODIUM - SQ 10,000 UNITS/ML VIAL SQ SCH ×2 (03:17→16:20)
[2017-02-19] MEDS: SODIUM CHLOR 0.9% 1000 ML INJ 1,000 ML IV SCH ×2 (03:17→09:59)
[2017-02-19] MEDS: INSULIN ASPART SUPPLEMENTAL SCALE SQ SCH ×4 (06:07→21:49)
[2017-02-19 08:49] LABS: AUTOMATED NEUTROPHIL # 14.6 TH/MM3 (1.8-7.7); BASOPHIL # 0.1 TH/MM3 (0-0.2); BASOPHIL % 0.3 % (0.0-2.0); EOSINOPHIL # 0.1 TH/MM3 (0-0.4); EOSINOPHIL % 0.7 % (0.0-4.0); HEMATOCRIT 37.7 % (39.0-51.0); HEMO FLAGS DIFF FINAL; LYMPH % 5.9 % (9.0-44.0); MEAN CELL VOLUME 92.5 FL (80.0-100.0); MEAN CORPUSCULAR HEMOGLOBIN 30.3 PG (27.0-34.0); MEAN CORPUSCULAR HGB CONC 32.8 % (32.0-36.0); MONO % 9.2 % (0.0-8.0); NEUT % 83.9 % (16.0-70.0); PLATELET COUNT 226 TH/MM3 (150-450); RED BLOOD COUNT 4.07 MIL/MM3 (4.50-5.90); RED CELL DISTRIBUTION WIDTH 13.3 % (11.6-17.2); WHITE BLOOD COUNT 17.4 TH/MM3 (4.0-11.0)
[2017-02-19 09:20] LABS: ALKALINE PHOSPHATASE 66 U/L (45-117); ALT (GPT) 22 U/L (12-78); ANION GAP 10 MEQ/L (5-15); AST (GOT) 22 U/L (15-37); BICARBONATE 23.4 MEQ/L (21.0-32.0); BLOOD UREA NITROGEN 21 MG/DL (7-18); CHLORIDE 100 MEQ/L (98-107); GLOMERULAR FILTRATION RATE 48 ML/MIN (>89); POTASSIUM 3.9 MEQ/L (3.5-5.1); SODIUM (NA) 133 MEQ/L (136-145); TOTAL BILIRUBIN ADULT 0.6 MG/DL (0.2-1.0)
--- NOTE | 2017-02-19 09:30 | HHI.FPPN ---
Subjective Remarks Patient seen and examined this morning. Patient's vitals are stable he's afebrile, on 3 L nasal cannula, saturating 96%. Walking around the room independently. States he feels better 40-60%. Denies CP or SOB. Could still present. (Ifrah Stephen MD R3) Objective Vitals Vital Signs Date Time Temp Pulse Resp B/P Pulse Ox O2 Delivery O2 Flow Rate FiO2 02/19/17 08:00 98.2 86 20 160/76 96 02/19/17 07:05 Nasal Cannula 3.00 02/19/17 04:00 99.2 87 20 157/69 94 02/19/17 03:29 Nasal Cannula 3.00 02/19/17 00:00 99.3 92 20 140/67 97 02/19/17 00:00 Nasal Cannula 3.00 02/18/17 20:51 Nasal Cannula 3.00 02/18/17 20:08 94 02/18/17 20:00 100.4 90 20 149/70 91 02/18/17 16:00 99.0 90 18 159/74 95 02/18/17 12:00 97.9 78 18 155/70 95 I/O 02/18/17 02/18/17 02/18/17 02/19/17 02/19/17 02/19/17 07:00 15:00 23:00 07:00 15:00 23:00 Intake Total 240 ml 480 ml 1606 ml 1149 ml Output Total 350 ml Balance -110 ml 480 ml 1606 ml 1149 ml Intake Oral 240 ml 480 ml 240 ml IV Total 1366 ml 1149 ml Output Urine Total 350 ml # Voids 3 2 # Bowel Movements 0 0 0 (Ifrah Stephen MD R3) Result Diagram: 02/19/17 0815 02/19/17 0815 Imaging Last Impressions Chest X-Ray 02/16/17 1119 Signed Impressions: Service Date/Time: Thursday, February 16, 2017 11:34 - CONCLUSION: 1. Chronic scarring at the lung bases without significant change. 2. No acute cardiopulmonary disease. There is no evidence of pulmonary edema. Chandan Maharaj MD Head CT 02/16/17 0000 Signed Impressions: Service Date/Time: Thursday, February 16, 2017 11:36 - CONCLUSION: Negative noncontrast head CT. Chandan Maharaj MD Objective Remarks GENERAL: This is a well-nourished, well-developed patient, in no apparent distress. SKIN: No rashes, ecchymoses or lesions. Cool and dry. NECK: Trachea midline. No JVD or lymphadenopathy. CARDIOVASCULAR: Regular rate and rhythm without murmurs, gallops, or rubs. RESPIRATORY: Clear to auscultation. Breath sounds equal bilaterally. No wheezes , rales, or rhonchi. GASTROINTESTINAL: Abdomen soft, non-tender, nondistended. MUSCULOSKELETAL: Extremities without clubbing, cyanosis, or edema. NEUROLOGICAL: Awake and alert. Normal speech. (Ifrah Stephen MD R3) A/P Assessment and Plan 81-year-old male being treated with antibiotics for community acquired pneumonia Discharge Planning D/C home tomorrow with home health. Discussed with Dr. Prince (Ifrah Stephen MD R3) Attending Attestation Pt. examined and case discussed with resident physicians I have read the above note and agree with the assessment/plan as discussed with me I was involved in all medical decision making for this patient Regan Prince MD (Regan Prince MD) Problem List: (1) Community acquired pneumonia Status: Acute Plan: Chest x-ray shows bibasilar consolidative changes with mild interstitial edema Antibiotic for community-acquired pneumonia has been started: Rocephin 1 g IV every 24 hours (started 02/16-) Azithromycin 500 mg by mouth every 24 hours (started 02/16- Blood cultures 02/16: No growth to date. Legionella and pneumococcal antigen negative Flu negative (2) UTI (urinary tract infection) Status: Acute Plan: Urinalysis reveals positive leukocyte esterase, white blood cell clumps. Urine culture 02/16: No growth to date. Antibiotics as below: Rocephin 1 g IV every 24 hours (02/16 - ) (3) HTN (hypertension) Status: Chronic Plan: Continue home blood pressure medications amlodipine 10 mg by mouth daily - Hydralazine 10 mg IV every 6 hours as needed for high blood pressure (4) ALDA (acute kidney injury) Status: Acute Plan: Improving. Creatinine increased from the patient's baseline. Likely prerenal due to acute infection - Baseline creatinine appears to be around 1.3 Normal saline 100 mL's per hour (5) Headache Status: Resolved Plan: Resolved. Head CT negative. (6) FEN/PPX Status: Acute Plan: Fluids: HLIV Electrolytes: Monitor and replace when necessary Nutrition: Heart healthy diet Prophylaxis: Heparin 5000 units twice a day Chronic medical problems: Hyperlipidemia: Continue statin BPH: Finasteride 5 mg by mouth daily Diabetes: Hold home medications. Sliding scale insulin (Ifrah Stephen MD R3) Problem Qualifiers (1) UTI (urinary tract infection): Qualified Code: N39.0 - Urinary tract infection with hematuria, site unspecified (2) HTN (hypertension): Qualified Code: I10 - Essential hypertension Ifrah Stephen MD R3 February 19, 2017 09:30 Regan Prince MD February 19, 2017 16:06
[2017-02-19] MEDS: SODIUM CHLORIDE 0.9% FLUSH 10 ML FLUSH IVF SCH ×2 (09:54→21:48)
[2017-02-19] MEDS: FINASTERIDE 5 MG TAB PO SCH (09:55)
[2017-02-19] MEDS: AZITHROMYCIN 250 MG TAB PO SCH (09:55)
[2017-02-19] MEDS: cefTRIAXone INJ 1,000 MG in SODIUM CHLORIDE 0.9% INJ 100 ML IV SCH (11:55)
[2017-02-19] MEDS: PRAVASTATIN SOD 40 MG TAB PO SCH (21:48)
[2017-02-20] MEDS: HEPARIN SODIUM - SQ 10,000 UNITS/ML VIAL SQ SCH (03:44)
[2017-02-20 04:04] VITALS: BP 148/69; PULSE 85; RESP 16; TEMP 98.9; O2SAT 93
[2017-02-20] MEDS: INSULIN ASPART SUPPLEMENTAL SCALE SQ SCH ×2 (06:10→12:36)
[2017-02-20] MEDS ORDERED: AZIT250T3 PO (07:48)
--- NOTE | 2017-02-20 07:50 | HHI.FPPN ---
Subjective Remarks Patient seen and examined this am. No overnight issues. Vitals are stable patient is afebrile. States he feels "as good as new." Denies CP or difficulty breathing. Objective Vitals Vital Signs Date Time Temp Pulse Resp B/P Pulse Ox O2 Delivery O2 Flow Rate FiO2 02/20/17 04:04 98.9 85 16 148/69 93 02/20/17 00:00 Nasal Cannula 2.00 02/19/17 23:28 100.8 79 16 140/65 93 02/19/17 21:49 Nasal Cannula 3.00 02/19/17 21:06 84 02/19/17 20:57 99.7 89 16 148/67 93 02/19/17 16:51 93 21 02/19/17 16:00 98.5 85 18 178/86 90 02/19/17 12:00 98.5 80 20 159/71 96 02/19/17 08:00 98.2 86 20 160/76 96 I/O 02/19/17 02/19/17 02/19/17 02/20/17 02/20/17 02/20/17 07:00 15:00 23:00 07:00 15:00 23:00 Intake Total 1149 ml 1574 ml 720 ml 200 ml Output Total 350 ml Balance 1149 ml 1574 ml 720 ml -150 ml Intake Oral 840 ml 720 ml 200 ml IV Total 1149 ml 734 ml Output Urine Total 350 ml # Voids 2 6 # Bowel Movements 0 2 0 Result Diagram: 02/19/17 0815 02/19/17 0815 Imaging Last Impressions Chest X-Ray 02/16/17 1119 Signed Impressions: Service Date/Time: Thursday, February 16, 2017 11:34 - CONCLUSION: 1. Chronic scarring at the lung bases without significant change. 2. No acute cardiopulmonary disease. There is no evidence of pulmonary edema. Chandan Maharaj MD Head CT 02/16/17 0000 Signed Impressions: Service Date/Time: Thursday, February 16, 2017 11:36 - CONCLUSION: Negative noncontrast head CT. Chandan Maharaj MD Objective Remarks GENERAL: This is a well-nourished, well-developed patient, in no apparent distress. SKIN: No rashes, ecchymoses or lesions. Cool and dry. NECK: Trachea midline. No JVD or lymphadenopathy. CARDIOVASCULAR: Regular rate and rhythm without murmurs, gallops, or rubs. RESPIRATORY: Clear to auscultation. Breath sounds equal bilaterally. No wheezes , rales, or rhonchi. GASTROINTESTINAL: Abdomen soft, non-tender, nondistended. MUSCULOSKELETAL: Extremities without clubbing, cyanosis, or edema. NEUROLOGICAL: Awake and alert. Normal speech. A/P Assessment and Plan 81-year-old male being treated with antibiotics for community acquired pneumonia Discharge Planning D/C home today with home health. Discussed with Jeremias and Robbie Problem List: (1) Community acquired pneumonia Status: Acute Plan: Chest x-ray shows bibasilar consolidative changes with mild interstitial edema Antibiotic for community-acquired pneumonia has been started: Rocephin 1 g IV every 24 hours (started 02/16-02/20) Azithromycin 500 mg by mouth every 24 hours (started 02/16- 02/20) will d/c on 2 more days for a total of 7 day treatment Blood cultures 02/16: No growth to date. Legionella and pneumococcal antigen negative Flu negative (2) UTI (urinary tract infection) Status: Acute Plan: Urinalysis reveals positive leukocyte esterase, white blood cell clumps. Urine culture 02/16: No growth to date. Antibiotics as below: Rocephin 1 g IV every 24 hours (02/16 -02/20 ) (3) HTN (hypertension) Status: Chronic Plan: Continue home blood pressure medications amlodipine 10 mg by mouth daily - Hydralazine 10 mg IV every 6 hours as needed for high blood pressure (4) ALDA (acute kidney injury) Status: Acute Plan: Improving. Creatinine increased from the patient's baseline. Likely prerenal due to acute infection - Baseline creatinine appears to be around 1.3 Normal saline 100 mL's per hour (5) Headache Status: Resolved Plan: Resolved. Head CT negative. (6) FEN/PPX Status: Acute Plan: Fluids: HLIV Electrolytes: Monitor and replace when necessary Nutrition: Heart healthy diet Prophylaxis: Heparin 5000 units twice a day Chronic medical problems: Hyperlipidemia: Continue statin BPH: Finasteride 5 mg by mouth daily Diabetes: Hold home medications. Sliding scale insulin Problem Qualifiers (1) UTI (urinary tract infection): Qualified Code: N39.0 - Urinary tract infection with hematuria, site unspecified (2) HTN (hypertension): Qualified Code: I10 - Essential hypertension Ifrah Stephen MD R3 February 20, 2017 07:50
[2017-02-20 08:00] VITALS: BP 165/74; PULSE 77; RESP 18; TEMP 98.3; O2SAT 95
--- NOTE | 2017-02-20 08:04 | HHI.DS ---
Discharge Summary Admission Date Feb 16, 2017 at 13:56 Discharge Date: February 20, 2017 Admitting Diagnosis complicated UTI, leukocytosis, atypical chest pain (1) Community acquired pneumonia Diagnosis: Principal Plan: Chest x-ray shows bibasilar consolidative changes with mild interstitial edema Antibiotic for community-acquired pneumonia has been started: Rocephin 1 g IV every 24 hours (started 02/16-02/20) Azithromycin 500 mg by mouth every 24 hours (started 02/16- 02/20) will d/c on 2 more days for a total of 7 day treatment Blood cultures 02/16: No growth to date. Legionella and pneumococcal antigen negative Flu negative (2) UTI (urinary tract infection) Plan: Urinalysis reveals positive leukocyte esterase, white blood cell clumps. Urine culture 02/16: No growth to date. Antibiotics as below: Rocephin 1 g IV every 24 hours (02/16 -02/20 ) (3) HTN (hypertension) Plan: Continue home blood pressure medications amlodipine 10 mg by mouth daily - Hydralazine 10 mg IV every 6 hours as needed for high blood pressure (4) ALDA (acute kidney injury) Diagnosis: Principal Plan: Improving. Creatinine increased from the patient's baseline. Likely prerenal due to acute infection - Baseline creatinine appears to be around 1.3 Normal saline 100 mL's per hour (5) Headache Plan: Resolved. Head CT negative. (6) FEN/PPX Plan: Fluids: HLIV Electrolytes: Monitor and replace when necessary Nutrition: Heart healthy diet Prophylaxis: Heparin 5000 units twice a day Chronic medical problems: Hyperlipidemia: Continue statin BPH: Finasteride 5 mg by mouth daily Diabetes: Hold home medications. Sliding scale insulin Brief History 81-year-old male with history of cardiac stent in 2009 presents with headache, dizzy spells since last night. Patient states before going to bed last night he had constant 8 out of 10 nonradiating sharp pain at the top of his head. He also started feeling dizzy at about the same time. He states he felt like the room was spinning. He was not able to sleep. He has been getting dizzy for the last 3 months. He normally gets dizzy when he walks. He is not currently dizzy. He does get temporary chest pain from time to time. He complains of 7 out of 10 chest pain which occurred last night. It is in the center of his chest. Nonradiating. It lasted about 1 hour and went away. Currently not in any pain. 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 He does feel a little disoriented today. He was trying to use his cell phone and couldn't remember the numbers. Currently he is not confused. Denies headaches now. feels disoriented today. trying to use cell and couldn't figure the numbers. feels less confused now. No headache now. He denies any neck pain. CBC/BMP: 02/19/17 0815 02/19/17 0815 Significant Findings Laboratory Tests Test 02/17/17 02/18/17 02/18/17 02/19/17 09:01 08:08 12:28 08:15 White Blood Count 28.9 TH/MM3 18.8 TH/MM3 17.4 TH/MM3 (4.0-11.0) (4.0-11.0) (4.0-11.0) Red Blood Count 4.23 MIL/MM3 3.87 MIL/MM3 4.07 MIL/MM3 (4.50-5.90) (4.50-5.90) (4.50-5.90) Hemoglobin 12.9 GM/DL 12.1 GM/DL 12.3 GM/DL (13.0-17.0) (13.0-17.0) (13.0-17.0) Neutrophils (%) (Auto) 85.7 % 82.9 % 83.9 % (16.0-70.0) (16.0-70.0) (16.0-70.0) Lymphocytes (%) (Auto) 5.7 % 6.9 % 5.9 % (9.0-44.0) (9.0-44.0) (9.0-44.0) Monocytes (%) (Auto) 8.2 % (0.0-8.0) 8.7 % (0.0-8.0) 9.2 % (0.0-8.0) Neutrophils # (Auto) 24.8 TH/MM3 15.6 TH/MM3 14.6 TH/MM3 (1.8-7.7) (1.8-7.7) (1.8-7.7) Monocytes # (Auto) 2.4 TH/MM3 1.6 TH/MM3 1.6 TH/MM3 (0-0.9) (0-0.9) (0-0.9) Neutrophils % (Manual) 71 % (16-70) Band Neutrophils % 9 % (0-6) Lymphocytes % 8 % (9-44) Monocytes % 12 % (0-8) Neutrophils # (Manual) 23.1 TH/MM3 (1.8-7.7) Sodium Level 134 MEQ/L 132 MEQ/L 133 MEQ/L (136-145) (136-145) (136-145) Blood Urea Nitrogen 28 MG/DL (7-18) 28 MG/DL (7-18) 21 MG/DL (7-18) Creatinine 1.70 MG/DL 1.52 MG/DL 1.40 MG/DL (0.60-1.30) (0.60-1.30) (0.60-1.30) Estimat Glomerular Filtration 39 ML/MIN (>89) 44 ML/MIN (>89) 48 ML/MIN (>89) Rate Random Glucose 155 MG/DL 170 MG/DL 169 MG/DL (74-106) (74-106) (74-106) Albumin 3.2 GM/DL 3.0 GM/DL (3.4-5.0) (3.4-5.0) Hematocrit 35.8 % 37.7 % (39.0-51.0) (39.0-51.0) PE at Discharge GENERAL: This is a well-nourished, well-developed patient, in no apparent distress. SKIN: No rashes, ecchymoses or lesions. Cool and dry. NECK: Trachea midline. No JVD or lymphadenopathy. CARDIOVASCULAR: Regular rate and rhythm without murmurs, gallops, or rubs. RESPIRATORY: Clear to auscultation. Breath sounds equal bilaterally. No wheezes , rales, or rhonchi. GASTROINTESTINAL: Abdomen soft, non-tender, nondistended. MUSCULOSKELETAL: Extremities without clubbing, cyanosis, or edema. NEUROLOGICAL: Awake and alert. Normal speech. Hospital Course Patient treated for PNA and UTI, UC was negative. Treated with 5 days of abx. D/C on 2 days of PO azithromycin, no complications during hospital course. Medical stable for d.c home with home healthy on 02/20. Pt Condition on Discharge: Stable Discharge Disposition: Disch w/ Home Health Serv Ifrah Stephen MD R3 February 20, 2017 08:03
[2017-02-20 08:39] VITALS: PULSE 74
[2017-02-20 09:45] LABS: AUTOMATED NEUTROPHIL # 12.3 TH/MM3 (1.8-7.7); BASOPHIL # 0.1 TH/MM3 (0-0.2); BASOPHIL % 0.4 % (0.0-2.0); EOSINOPHIL # 0.2 TH/MM3 (0-0.4); EOSINOPHIL % 1.6 % (0.0-4.0); HEMATOCRIT 35.6 % (39.0-51.0); HEMO FLAGS DIFF FINAL; LYMPH % 8.2 % (9.0-44.0); LYMPHOCYTE # 1.3 TH/MM3 (1.0-4.8); MEAN CELL VOLUME 91.9 FL (80.0-100.0); MEAN CORPUSCULAR HGB CONC 33.7 % (32.0-36.0); NEUT % 79.8 % (16.0-70.0); PLATELET COUNT 246 TH/MM3 (150-450); RED BLOOD COUNT 3.87 MIL/MM3 (4.50-5.90); WHITE BLOOD COUNT 15.4 TH/MM3 (4.0-11.0)
[2017-02-20] MEDS: FINASTERIDE 5 MG TAB PO SCH (10:22)
[2017-02-20] MEDS: AZITHROMYCIN 250 MG TAB PO SCH (10:22)
[2017-02-20] MEDS: SODIUM CHLORIDE 0.9% FLUSH 10 ML FLUSH IVF SCH (10:23)
[2017-02-20 10:31] LABS: BICARBONATE 25.6 MEQ/L (21.0-32.0)
[2017-02-20] MEDS: cefTRIAXone INJ 1,000 MG in SODIUM CHLORIDE 0.9% INJ 100 ML IV SCH (11:37)
[2017-02-20 12:00] VITALS: BP 176/74; PULSE 78; RESP 18; TEMP 97.9; O2SAT 92
== END 2017-02-20 14:35 | disposition home or self-care (01) | DRG 689 ==
LOC: NEPC 11:04 → NEDA 13:56 → N04A 18:03
PROVIDERS: ADMIT Family Medicine; ATTEND Family Medicine
DX: N39.0 Urinary tract infection, site not specified (principal); J18.9 Pneumonia, unspecified organism; N17.9 Acute kidney failure, unspecified; E11.9 Type 2 diabetes mellitus without complications; Z79.84 Long term (current) use of oral hypoglycemic drugs; R42 Dizziness and giddiness; I10 Essential (primary) hypertension; R51 Headache; E78.5 Hyperlipidemia, unspecified; N40.0 Benign prostatic hyperplasia without lower urinary tract symptoms; I25.10 Atherosclerotic heart disease of native coronary artery without angina pectoris; Z95.5 Presence of coronary angioplasty implant and graft; H91.90 Unspecified hearing loss, unspecified ear; M62.838 Other muscle spasm; Z85.46 Personal history of malignant neoplasm of prostate; Z87.891 Personal history of nicotine dependence; Z66 Do not resuscitate
CPT/HCPCS: 70450; 71010; 71020; 80048; 80053; 81001; 82550; 82948; 83605; 83690; 83735; 83880; 84484; 85007; 85025; 85027; 85060; 85610; 85730; 87040; 87086; 87449; 87804; 93005; 94150; 94620; 96374; 96375; J0456; J0696; J1644; J1815; J2270; J2405; J7030; J7040; J7050

== ENCOUNTER 2017-11-11 07:10 | Inpatient (IN) | payer MEDICAID, MEDICARE, OTHER ==
[~2017-11-11] VITALS: Ht 180.3 cm; Wt 74.6 kg
[2017-11-11] VITALS (7 sets, daily range): BP systolic 126–155; BP diastolic 59–72; PULSE 62–86; RESP 12–20; TEMP 97.4–98.3; O2SAT 91–100
[~2017-11-11 07:10] MED LIST changes: +AZIT250T3 PO; -BACT800T5 PO
--- NOTE | 2017-11-11 07:29 | PD ---
HPI Chief Complaint: Cold / Flu Symptoms Time Seen by Provider: 07:19 Travel History International Travel<30 days: No Contact w/Intl Traveler<30days: No Traveled to known affect area: No History of Present Illness HPI The patient is a 81-year-old male who presents to the emergency department for multiple complaints. The patient notes a one-week history of chest pain which he describes as dull, constant, anterior, and bilateral. He denies any shortness of breath associated with chest pain and denies any exertional symptoms. He also complains of mild headache, dizziness, his abdomen "churning ", and fever. The patient states he took Tylenol at home and broke out in a sweat broke his fever. He also complains of a dry mostly nonproductive cough without any postnasal drip. The patient does have a history of bladder and prostate cancer, is going to resume chemotherapy in December per his report. He is followed at the [place] [facility]. He did receive an influenza vaccination this year. He denies any vomiting or diarrhea. Symptoms are moderate, onset one week, and there are no current alleviating factors. PFSH Past Medical History Arthritis: No Asthma: No Autoimmune Disease: No Anxiety: No Depression: No Heart Rhythm Problems: No Cancer: No Cardiac Catheterization: Yes (1 STENT) Cardiovascular Problems: Yes (HTN) High Cholesterol: No Chest Pain: Yes Congestive Heart Failure: No COPD: No Diabetes: Yes Diminished Hearing: Yes ([place]) Diverticulitis: Yes Endocrine: Yes Gastrointestinal Disorders: Yes (DIVERTICULITIS ) GERD: Yes Genitourinary: Yes Hiatal Hernia: No Hypertension: Yes (NOT MEDICATED AT THIS TIME) Immune Disorder: No Implanted Vascular Access Dvce: Yes Kidney Stones: No Musculoskeletal: Yes Neurologic: No Psychiatric: No Reproductive: No Respiratory: No Renal Failure: No Sleep Apnea: No Thyroid Disease: No Ulcer: No Past Surgical History Abdominal Surgery: Yes (COLON RESECTION) AICD: No Arteriovenous Shunt: No Cardiac Surgery: Yes (STENT PLACEMENT) Coronary Artery Bypass Graft: No Coronary Stent: Yes (x1 stent, RCA) Ear Surgery: No Endocrine Surgery: No Eye Surgery: Yes (IMPLANTS) Genitourinary Surgery: Yes (PROSTATE) Insulin Pump: No Joint Replacement: No Neurologic Surgery: No Oral Surgery: No Pacemaker: No Thoracic Surgery: No Other Surgery: Yes Social History Alcohol Use: No Tobacco Use: No (Quit 1989) Substance Use: No Allergies-Medications (Allergen,Severity, Reaction): Coded Allergies: codeine (Unverified Allergy, Severe, Hallucinations, 06/06/17) Reported Meds & Prescriptions Reported Meds & Active Scripts Active Azithromycin 250 Mg Tab 500 Mg PO DAILY Reported Proscar (Finasteride) 5 Mg Tab 5 Mg PO DAILY Glipizide Unknown Strength Tab 5 Mg PO BID Pravachol 40 Mg Tab 40 Mg PO HS Norvasc (Amlodipine Besylate) 10 Mg Tab 10 Mg PO DAILY Review of Systems Except as stated in HPI: all other systems reviewed are Neg General / Constitutional: Positive: Fever HENT: Positive: Headaches, Lightheadedness Cardiovascular: Positive: Chest Pain or Discomfort Respiratory: Positive: Cough, No: Shortness of Breath Gastrointestinal: Positive: Abdominal Pain (intermittent "churning "), No: Nausea, Vomiting, Diarrhea Genitourinary: Positive: Other (history of bladder and prostate cancer), No: Dysuria Musculoskeletal: No: Myalgias Neurologic: Positive: Dizziness Physical Exam Narrative GENERAL: Awake, alert, very pleasant 81-year-old male who appears his stated age is in no acute respiratory distress. SKIN: Focused skin assessment warm/dry. HEAD: Atraumatic. Normocephalic. EYES: No injection or drainage. ENT: No nasal bleeding or discharge. Mucous membranes pink and moist. Oropharynx reveals cobblestoning but no exudate. NECK: Trachea midline. No JVD. CARDIOVASCULAR: Regular rate and rhythm. Holosystolic murmur noted. RESPIRATORY: No accessory muscle use. Clear to auscultation. Breath sounds equal bilaterally. GASTROINTESTINAL: Abdomen soft, non-tender, nondistended. No rebound tenderness. No guarding or rigidity. MUSCULOSKELETAL: No obvious deformities. No clubbing. No cyanosis. No edema. NEUROLOGICAL: Awake and alert. No obvious cranial nerve deficits. Motor grossly within normal limits. Normal speech. PSYCHIATRIC: Appropriate mood and affect; insight and judgment normal. Data Data Last Documented VS Vital Signs Date Time Temp Pulse Resp B/P (MAP) Pulse Ox O2 Delivery O2 Flow Rate FiO2 11/11/17 07:43 100 Room Air 11/11/17 07:37 11/11/17 07:22 62 18 11/11/17 07:17 98.1 Orders Orders Electrocardiogram (11/11/17 07:24) B-Type Natriuretic Peptide (11/11/17 07:24) Ckmb (Isoenzyme) Profile (11/11/17 07:24) Complete Blood Count With Diff (11/11/17 07:24) Comprehensive Metabolic Panel (11/11/17 07:24) Magnesium (Mg) (11/11/17 07:24) Prothrombin Time / Inr (Pt) (11/11/17 07:24) Act Partial Throm Time (Ptt) (11/11/17 07:24) Troponin I (11/11/17 07:24) Chest, Single Ap (11/11/17 07:24) Ecg Monitoring (11/11/17 07:24) Bilateral Bp Monitoring (11/11/17 07:24) Iv Access Insert/Monitor (11/11/17 07:24) Oximetry (11/11/17 07:24) Oxygen Administration (11/11/17 07:24) Aspirin Chew (Aspirin Chew) (11/11/17 07:30) Sodium Chloride 0.9% Flush (Ns Flush) (11/11/17 07:30) Sodium Chlorid 0.9% 500 Ml Inj (Ns 500 M (11/11/17 07:30) Urinalysis - C+S If Indicated (11/11/17 07:24) Influenzae A/B Antigen (11/11/17 07:24) Ceftriaxone Inj (Rocephin Inj) (11/11/17 08:00) Azithromycin Inj (Zithromax Inj) (11/11/17 08:00) Ct Thorax/ Chest Wo Iv Contras (11/11/17 ) Lactic Acid (11/11/17 08:54) Blood Culture (11/11/17 08:54) Admit Order (Ed Use Only) (11/11/17 09:28) Labs Laboratory Tests Test 11/11/17 07:30 11/11/17 09:10 White Blood Count 19.3 TH/MM3 Red Blood Count 4.27 MIL/MM3 Hemoglobin 13.3 GM/DL Hematocrit 40.3 % Mean Corpuscular Volume 94.5 FL Mean Corpuscular Hemoglobin 31.2 PG Mean Corpuscular Hemoglobin Concent 33.0 % Red Cell Distribution Width 13.1 % Platelet Count 203 TH/MM3 Mean Platelet Volume 8.0 FL Neutrophils (%) (Auto) 78.7 % Lymphocytes (%) (Auto) 8.4 % Monocytes (%) (Auto) 9.2 % Eosinophils (%) (Auto) 3.3 % Basophils (%) (Auto) 0.4 % Neutrophils # (Auto) 15.2 TH/MM3 Lymphocytes # (Auto) 1.6 TH/MM3 Monocytes # (Auto) 1.8 TH/MM3 Eosinophils # (Auto) 0.6 TH/MM3 Basophils # (Auto) 0.1 TH/MM3 CBC Comment DIFF FINAL Differential Comment Prothrombin Time 10.8 SEC Prothromb Time International Ratio 1.1 RATIO Activated Partial Thromboplast Time 27.7 SEC Blood Urea Nitrogen 23 MG/DL Creatinine 1.59 MG/DL Random Glucose 193 MG/DL Total Protein 7.0 GM/DL Albumin 4.0 GM/DL Calcium Level 8.8 MG/DL Magnesium Level 2.2 MG/DL Alkaline Phosphatase 64 U/L Aspartate Amino Transf (AST/SGOT) 14 U/L Alanine Aminotransferase (ALT/SGPT) 25 U/L Total Bilirubin 0.9 MG/DL Sodium Level 135 MEQ/L Potassium Level 3.9 MEQ/L Chloride Level 102 MEQ/L Carbon Dioxide Level 25.9 MEQ/L Anion Gap 7 MEQ/L Estimat Glomerular Filtration Rate 42 ML/MIN Total Creatine Kinase 60 U/L Troponin I LESS THAN 0.02 NG/ML B-Type Natriuretic Peptide 68 PG/ML MDM Medical Decision Making Medical Screen Exam Complete: Yes Emergency Medical Condition: Yes Medical Record Reviewed: Yes Interpretation(s) EKG reveals sinus bradycardia with a heart rate of 57. Nonspecific ST depression. Chest x-ray reveals no acute cardiopulmonary disease. Differential Diagnosis Differential diagnosis includes viral syndrome, influenza, pneumonia, bronchitis , acute coronary syndrome, pulmonary edema, pleural effusion, UTI, pyelonephritis, complicated UTI, dehydration, hyponatremia. Narrative Course IV was established, labs are drawn and sent, and the patient was placed on cardiac telemetry monitoring and continuous pulse oximetry monitoring. EKG was ordered and interpreted. Chest x-ray was obtained. The patient received aspirin 81 mg orally and 500 cc of normal saline. Chest x-ray read as negative per radiology, however, there appears to be a possible early right pneumonia. Patient's white count was 19.3, therefore, patient was administered Rocephin 1 g intravenously and Zithromax 500 mg intravenously to cover for community acquired pneumonia. Sepsis Criteria SIRS Criteria (2 or more): WBC > 33726, < 4000 or > 10% bands Sepsis Criteria (SIRS+source): Infect source susp/known Physician Communication Physician Communication The on-call medical team was paged for admission. I discussed the patient with the residents who agreed with admission to Dr. Dickerson. Diagnosis Primary Impression: Community acquired pneumonia Qualified Codes: J18.1 - Lobar pneumonia, unspecified organism Additional Impressions: ALDA (acute kidney injury) Leukocytosis Qualified Codes: D72.829 - Elevated white blood cell count, unspecified Condition: Stable Jacinto Liao MD Nov 11, 2017 07:29
[2017-11-11] MEDS ORDERED: SODIUM CHLORID 0.9% 500 ML INJ 500 ML IV ONE (07:30)
[2017-11-11] MEDS ORDERED: SODIUM CHLORIDE 0.9% FLUSH 10 ML FLUSH IVF PRN (07:30)
[2017-11-11] MEDS ORDERED: ASPIRIN 81 MG CHEW TAB PO ONE (07:30)
--- NOTE | 2017-11-11 07:41 | RADRPT ---
EXAM DATE/TIME: 11/11/2017 07:29 [facility] COMPARISON: CHEST PA & LAT, February 16, 2017, 15:28. INDICATIONS : Shortness of breath. Chest pain. MEDICAL HISTORY : Hypertension. Cardiovascular disease. SURGICAL HISTORY : None. ENCOUNTER: Initial ACUITY: 2 weeks PAIN SCORE: 2/10 LOCATION: Bilateral chest FINDINGS: The lungs are clear without infiltrate, nodule, or mass. There is no appreciable pleural effusion fo r technique. Heart and mediastinum are unremarkable. CONCLUSION: No acute cardiopulmonary disease. Martin Black MD on November 11, 2017 at 7:39 Board Certified Radiologist. This report was verified electronically.
[2017-11-11 07:55] LABS: AUTOMATED NEUTROPHIL # 15.2 TH/MM3 (1.8-7.7); BASOPHIL # 0.1 TH/MM3 (0-0.2); BASOPHIL % 0.4 % (0.0-2.0); EOSINOPHIL # 0.6 TH/MM3 (0-0.4); EOSINOPHIL % 3.3 % (0.0-4.0); HEMATOCRIT 40.3 % (39.0-51.0); HEMOGLOBIN 13.3 GM/DL (13.0-17.0); LYMPH % 8.4 % (9.0-44.0); LYMPHOCYTE # 1.6 TH/MM3 (1.0-4.8); MEAN CELL VOLUME 94.5 FL (80.0-100.0); MEAN CORPUSCULAR HEMOGLOBIN 31.2 PG (27.0-34.0); MONO % 9.2 % (0.0-8.0); MONOCYTE # 1.8 TH/MM3 (0-0.9); NEUT % 78.7 % (16.0-70.0); PLATELET COUNT 203 TH/MM3 (150-450); RED BLOOD COUNT 4.27 MIL/MM3 (4.50-5.90); RED CELL DISTRIBUTION WIDTH 13.1 % (11.6-17.2); WHITE BLOOD COUNT 19.3 TH/MM3 (4.0-11.0)
[2017-11-11] MEDS ORDERED: AZITHROMYCIN INJ 500 MG in SODIUM CHLOR 0.9% 250 ML INJ 250 ML IV ONE (08:00)
[2017-11-11] MEDS ORDERED: cefTRIAXone INJ 1,000 MG in SODIUM CHLORIDE 0.9% INJ 100 ML IV ONE (08:00)
[2017-11-11 08:10] LABS: ALT (GPT) 25 U/L (12-78); AST (GOT) 14 U/L (15-37); BICARBONATE 25.9 MEQ/L (21.0-32.0); BLOOD UREA NITROGEN 23 MG/DL (7-18); CALCIUM 8.8 MG/DL (8.5-10.1); CHLORIDE 102 MEQ/L (98-107); CREATININE 1.59 MG/DL (0.60-1.30); GLOMERULAR FILTRATION RATE 42 ML/MIN (>89); GLUCOSE,RANDOM 193 MG/DL (74-106); INTERNATIONAL NORMALIZED RATIO 1.1 RATIO; MAGNESIUM 2.2 MG/DL (1.5-2.5); PROTHROMBIN TIME - PATIENT 10.8 SEC (9.8-11.6); SODIUM (NA) 135 MEQ/L (136-145)
[2017-11-11 08:14] LABS: ALKALINE PHOSPHATASE 64 U/L (45-117); TOTAL BILIRUBIN ADULT 0.9 MG/DL (0.2-1.0); TROPONIN I LESS THAN 0.02 NG/ML (0.02-0.05)
--- NOTE | 2017-11-11 08:50 | RADRPT ---
EXAM DATE/TIME: 11/11/2017 08:10 [facility] COMPARISON: CT ABDOMEN & PELVIS W CONTRAST, June 06, 2015, 19:09. INDICATIONS : Substernal chest pain for two days. RADIATION DOSE: 6.66 CTDIvol (mGy) MEDICAL HISTORY : Cardiovascular disease. Hypertension. Diverticulitis. Diabetes SURGICAL HISTORY : Colon resection. Coronary stents, prostate, ENCOUNTER: Initial ACUITY: 2 days PAIN SCALE: 4/10 LOCATION: substernal chest TECHNIQUE: Volumetric scanning of the chest was performed. Using automated exposure control and adjustment of t he mA and/or kV according to patient size, radiation dose was kept as low as reasonably achievable to obtain optimal diagnostic quality images. DICOM format image data is available electronically for r eview and comparison. Follow-up recommendations for detected pulmonary nodules are based at a minimum on nodule size and pa tient risk factors according to Fleischner Society Guidelines. FINDINGS: There are scarring in the apices and COPD changes are seen with focal airspace consolidation rig ht middle lobe characteristic of pneumonia. There are small lymph nodes in the mediastinum most likel y benign. Coronary artery calcifications are seen typically seen with CAD and need to be evaluated cl inically. There are atherosclerotic calcifications of the aorta due to chronic atherosclerotic diseas e. Approximate 7.2 cm simple cyst is present in the right kidney not changed since 2014. The gallblad guy demonstrates multiple stones without gallbladder wall thickening, or pericholecystic fluid. CONCLUSION: Right middle lobe pneumonia. Martin Black MD on November 11, 2017 at 8:42 Board Certified Radiologist. This report was verified electronically.
--- NOTE | 2017-11-11 09:54 | HHI.HP ---
[facility] Service Family Medicine Primary Care Physician [facility] Admission Diagnosis right middle lobe pneumonia, acute kidney injury, leukocytosis Diagnoses: Chief Complaint: flu like symptoms International Travel<30 Days: No Contact w/Intl Traveler<30days: No Known Affected Area: No History of Present Illness Mr Morales is an 81YO male who is followed by the PA (can't recall his PCP name ) with PMHx HTN, DM type 2, HLD, BPH, and CVD s/p posterior heart stent placed in 1989 who presents today for a week of cold and flu-like sxs. Approximately 7 days ago, he started with being sick to his stomach with nausea, queasiness and headache, but no diarrhea or vomiting. One to two days later he began to have intermittent chest pain that was substernal, dull, and bilateral but without radiation or diaphoresis, and then with head congestion and minor rhinorrhea. During the interview he denies CP at the moment, doesn't have pain with deep inspiration, but has a small occasional non-productive cough. At home he had subjective fever but after taking tylenol he measured his temp at 98.8. He manages his DM type 2 with only glipizide 5mg bid. A look at his most recent A1C in 2013 is 6.7 and Baseline Cr is ~1.3-1.5. He admits he has some hematuria on occasion and urinary frequency. He takes amlodipine and pravastatin for his HTN. He also takes OTC vitamin C and B12. Although he has been diagnosed with BPH, his PCP recently stopped his finisteride. He is a former smoker who quit in 1989 and denies COPD or home O2 requirement. Denies being SOB except with exertion, V/D, constipation, and DVT pain. He does state he has black stools due to taking iron tablets but isn't sure whether he has anemia. His last colonoscopy was in summer 2016 with 5 polyps removed. He says his bowel movements have not been the same since. (Jamal De La Fuente MD R1) Review of Systems Constitutional: COMPLAINS OF: Fever, Dizziness, DENIES: Chills Eyes: DENIES: Blurred vision, Diplopia, Vision loss Ears, nose, mouth, throat: COMPLAINS OF: Nasal discharge (slight), Running Nose , DENIES: Tinnitus, Hearing loss, Oral lesions, Throat pain, Hoarseness, Ear Pain, Sinus Pain Respiratory: COMPLAINS OF: Cough, Shortness of breath (only with exertion), DENIES: Wheezing, Sputum production Cardiovascular: COMPLAINS OF: Chest pain (intermittent), Dyspnea on Exertion, DENIES: Palpitations, Syncope, Lower Extremity Edema Gastrointestinal: COMPLAINS OF: Abdominal pain, Black stools (takes iron tablets), Nausea, DENIES: Bloody stools, Constipation, Diarrhea, Vomiting Genitourinary: COMPLAINS OF: Urinary frequency, Urgency, Hematuria (occasional) , Nocturia (x2 a night), DENIES: Urinary incontinence Musculoskeletal: DENIES: Joint pain, Muscle aches Integumentary: DENIES: Abnormal pigmentation, Rash Hematologic/lymphatic: DENIES: Lymphadenopathy Neurologic: COMPLAINS OF: Headache, DENIES: Localized weakness, Paresthesias, Seizures Psychiatric: DENIES: Anxiety (Jamal De La Fuente MD R1) Past Family Social History Past Medical History HTN DM type 2 HLD BPH CVD s/p stent placement 2009 Past Surgical History Diverticulitis - took out part of colon and bladder Has stent in proximal RCA 2010 bilateral cataract surgery colonoscopy x2 last one in April 2017 - took out 5 polyps Reported Medications Reported Meds & Active Scripts Active Azithromycin 250 Mg Tab 500 Mg PO DAILY Reported Proscar (Finasteride) 5 Mg Tab 5 Mg PO DAILY Glipizide Unknown Strength Tab 5 Mg PO BID Pravachol 40 Mg Tab 40 Mg PO HS Norvasc (Amlodipine Besylate) 10 Mg Tab 10 Mg PO DAILY (Jamal De La Fuente MD R1) Allergies: Coded Allergies: codeine (Unverified Allergy, Severe, Hallucinations, 06/06/17) Active Ordered Medications Current Medications Medications (Trade) Dose Ordered Sig/Jhon Route Start Time Stop Time Status Last Admin (NS Flush) 2 ml UNSCH PRN IVF 11/11/17 07:30 Family History Father - in 68 YOA from cirrhosis 2/2 EtOH abuse Mother - at 38 YOA from TB [employer] Social History EtOH - none Tobacco - none, former smoker quit in 1989 Drugs - none Both brothers were alcoholics Lives alone; in 2007 after 28 yrs of marriage (Jamal De La Fuente MD R1) Physical Exam Vital Signs Vital Signs Date Time Temp Pulse Resp B/P (MAP) Pulse Ox O2 Delivery O2 Flow Rate FiO2 11/11/17 07:43 100 Room Air 11/11/17 07:37 100 Room Air 11/11/17 07:37 100 Room Air 11/11/17 07:22 62 18 126/72 (90) 99 11/11/17 07:17 98.1 62 12 142/66 (91) 100 Physical Exam GENERAL: This is a well-nourished, well-developed elderly male in no apparent distress sitting up in bed. SKIN: No rashes, ecchymoses or lesions. Cool and dry. HEAD: Atraumatic. Normocephalic. EYES: Pupils equal round and reactive. Extraocular motions intact. No scleral icterus. No injection or drainage. ENT: Nose without bleeding, drainage or rhinorrhea. Throat without erythema, tonsillar hypertrophy or exudate. Uvula midline. Airway patent. MMM. NECK: Trachea midline. No lymphadenopathy. Supple, nontender, no meningeal signs. CARDIOVASCULAR: Regular rate and rhythm without murmur, gallop, or rub. RESPIRATORY: Clear to auscultation. Breath sounds equal bilaterally. No wheezes , rales, or rhonchi. GASTROINTESTINAL: Abdomen soft, non-tender, nondistended. No hepato-splenomegaly , or palpable masses. No guarding. MUSCULOSKELETAL: Extremities without clubbing, cyanosis, or edema. No joint tenderness, effusion, or edema noted. No calf tenderness. NEUROLOGICAL: Awake and alert. Cranial nerves II through XII intact. Motor and sensory grossly within normal limits. Normal speech. Laboratory Laboratory Tests Test 11/11/17 07:30 11/11/17 09:10 White Blood Count 19.3 Red Blood Count 4.27 Hemoglobin 13.3 Hematocrit 40.3 Mean Corpuscular Volume 94.5 Mean Corpuscular Hemoglobin 31.2 Mean Corpuscular Hemoglobin Concent 33.0 Red Cell Distribution Width 13.1 Platelet Count 203 Mean Platelet Volume 8.0 Neutrophils (%) (Auto) 78.7 Lymphocytes (%) (Auto) 8.4 Monocytes (%) (Auto) 9.2 Eosinophils (%) (Auto) 3.3 Basophils (%) (Auto) 0.4 Neutrophils # (Auto) 15.2 Lymphocytes # (Auto) 1.6 Monocytes # (Auto) 1.8 Eosinophils # (Auto) 0.6 Basophils # (Auto) 0.1 CBC Comment DIFF FINAL Differential Comment Prothrombin Time 10.8 Prothromb Time International Ratio 1.1 Activated Partial Thromboplast Time 27.7 Blood Urea Nitrogen 23 Creatinine 1.59 Random Glucose 193 Total Protein 7.0 Albumin 4.0 Calcium Level 8.8 Magnesium Level 2.2 Alkaline Phosphatase 64 Aspartate Amino Transf (AST/SGOT) 14 Alanine Aminotransferase (ALT/SGPT) 25 Total Bilirubin 0.9 Sodium Level 135 Potassium Level 3.9 Chloride Level 102 Carbon Dioxide Level 25.9 Anion Gap 7 Estimat Glomerular Filtration Rate 42 Total Creatine Kinase 60 Troponin I LESS THAN 0.02 B-Type Natriuretic Peptide 68 Date/Time Source Procedure Growth Status 11/11/17 09:10 Blood Peripheral Aerobic Blood Culture Pending Received 11/11/17 09:10 Blood Peripheral Anaerobic Blood Culture Pending Received 11/11/17 07:32 Nasal Aspirate Influenza Types A,B Antigen (JULIETA) - Final NEGATIVE FOR FLU A AND B ANTIGEN.... Complete (Jamal De La Fuente MD R1) Result Diagram: 11/11/1772911/11/1730 Imaging Last Impressions Chest X-Ray 11/11/1724 Signed Impressions: Service Date/Time: Saturday, November 11, 2017 07:29 - CONCLUSION: No acute cardiopulmonary disease. Martin Black MD Renal Ultrasound 11/11/17 0000 Signed Impressions: Service Date/Time: Saturday, November 11, 2017 12:36 - CONCLUSION: 1. Echogenic kidneys which can be seen with medical renal disease. 2. Bilateral renal cysts. Echogenic area within the base of the bladder of uncertain etiology measuring 7.1 cm. No color flow noted. This could be related to protruding prostate gland , thrombus or other debris. Clinical correlation. Wade Beatty MD Chest CT 11/11/17 0000 Signed Impressions: Service Date/Time: Saturday, November 11, 2017 08:10 - CONCLUSION: Right middle lobe pneumonia. Martin Black MD (Jamal De La Fuente MD R1) Septic Shock Reassessment Septic shock perfusion: reassessment completed (Jamal De La Fuente MD R1) Caprini VTE Risk Assessment Caprini VTE Risk Assessment: Mod/High Risk (score >= 2) Caprini Risk Assessment Model Point Value = 1 Point Value = 2 Point Value = 3 Point Value = 5 Age 41-60 Minor surgery BMI > 25 kg/m2 Swollen legs Varicose veins or History of unexplained or recurrent spontaneous Oral contraceptives or hormone replacement Sepsis (< 1 month) Serious lung disease, including pneumonia (< 1 month) Abnormal pulmonary function Acute myocardial infarction Congestive heart failure (< 1 month) History of inflammatory bowel disease Medical patient at bed rest Age 61-74 Arthroscopic surgery Major open surgery (> 45 min) Laparoscopic surgery (> 45 min) Malignancy Confined to bed (> 72 hours) Immobilizing plaster cast Central venous access Age >= 75 History of VTE Family history of VTE Factor V Leiden Prothrombin [id number] Lupus anticoagulant Anticardiolipin antibodies Elevated serum homocysteine Heparin-induced thrombocytopenia Other congenital or acquired thrombophilia Stroke (< 1 month) Elective arthroplasty Hip, pelvis, or leg fracture Acute spinal cord injury (< 1 month) Prophylaxis Regimen Total Risk Factor Score Risk Level Prophylaxis Regimen 0-1 Low Early ambulation 2 Moderate Order ONE of the following: *Sequential Compression Device (SCD) *Heparin 5000 units SQ BID 3-4 Higher Order ONE of the following medications: *Heparin 5000 units SQ TID *Enoxaparin/Lovenox 40 mg SQ daily (WT < 150 kg, CrCl > 30 mL/min) *Enoxaparin/Lovenox 30 mg SQ daily (WT < 150 kg, CrCl > 10-29 mL/min) *Enoxaparin/Lovenox 30 mg SQ BID (WT < 150 kg, CrCl > 30 mL/min) AND/OR *Sequential Compression Device (SCD) 5 or more Highest Order ONE of the following medications: *Heparin 5000 units SQ TID (Preferred with Epidurals) *Enoxaparin/Lovenox 40 mg SQ daily (WT < 150 kg, CrCl > 30 mL/min) *Enoxaparin/Lovenox 30 mg SQ daily (WT < 150 kg, CrCl > 10-29 mL/min) *Enoxaparin/Lovenox 30 mg SQ BID (WT < 150 kg, CrCl > 30 mL/min) AND *Sequential Compression Device (SCD) (Jamal De La Fuente MD R1) Assessment and Plan Assessment and Plan 81 YO male w/PMHx HTN, DM type 2, and BPH with RML PNA on chest CT and likely CAP. Urine cx pending. Pt doesn't meet sepsis criteria on admission breathing 100% on RA, WBC 19.8, RR and pulse wnl; however, pt lives alone. Denies being depressed or anxious. His CURB 65 score is 2 for elevated BUN and age >65 with 6.8% of 30-day mortality. PLAN: 1. Mild CAP: flu-like sxs for 1 week in -RML PNA on chest CT; CXR negative; WBC 19.3 -Rocephin 1g IV q24h (1x in ED and will continue for now) -Azithromycin 500mg IV in ED; will continue 500mg PO -Tylenol 650mg q6h PRN for fever >100.4 -Blood and urine cx pending -Legionella, pneumococcal urine ag pending -Resp panel -Influenza a/b pending -Duonebs q6h -Albuterol nebs q6h PRN -IS 2. CP: r/o ACS; intermittent in nature, possibly demand ischemia, appears to be a lower likelihood; however, pt has positive hx for CVD with proximal RCA stent placed in 2009 -EKG on admit with bradycardia to [address] V4-V5; 2 more pending -Troponin <0.02 x1; 2 more pending -BNP 68 -Tele -Continue home amlodipine 10mg daily -Continue home pravastatin 40mg qhs -ASA 81mg given in ED 3. DM type 2 +/- ALDA (Cr Baseline 1.3-1.5) w/Cr 1.56 on admit -A1c 6.7 in 2013; A1c pending -Hold home glipizide 5mg BID -Low Novolog SSI -Lipid panel wnl -Renal US showing renal disease 4. Cold/flu-like sxs -Possible viral prodrome -flu/legionella/pneumococcal testing as above -supportive tx -Tylenol 650mg as above 5. Abdominal pain -Likely flu-like sxs -Zofran 4mg q8h IV PRN 6. Dizziness -Likely 2/2 flu-like sxs -No syncope/pre-syncope; no palpitations -Supportive care as above -ST swallow eval pending 7. FEN/GI/PPx: -Fluids: 500ml bolus in ED; PO fluids -Electrolytes: will monitor daily labs and replete as necessary -Nutrition: diabetic diet -GI: no ppx indicated; not on steroids -PPx: Heparin 5000unit q8h, due to Cr 1.56 No pain medication indicated Heme occult blood test pending PT eval and tx Ambien 5mg PO qhs for sleep Code Status DNR His niece is his HCPOA - Maty Rooney Discussed Condition With Dr Orona (Jamal De La Fuente MD R1) Attending Attestation The patient has been seen and examined. The chart and all resident notes have been reviewed. I agree that inpatient care is appropriate and that a two midnight stay is expected for the reasons documented in the resident history and physical. I have discussed this with the resident and certify the resident s order for inpatient admission. (Bridget Dickerson MD) Problem List: (1) Community acquired pneumonia ICD Codes: J18.9 - Pneumonia, unspecified organism Status: Acute (2) Abdominal pain ICD Codes: R10.9 - Abdominal pain Status: Acute (3) Hx of coronary artery disease ICD Codes: Z86.79 - Hx of coronary artery disease Status: Acute (4) Dizziness ICD Codes: R42 - Dizziness and giddiness Status: Acute (5) Headache ICD Codes: R51 - Headache Status: Resolved (6) HTN (hypertension) ICD Codes: I10 - HTN (hypertension) Status: Chronic (7) FEN/GI/PPx (Jamal De La Fuente MD R1) Physician Certification 2 Midnight Certification Type: Admission for Inpatient Services Order for Inpatient Services The services are ordered in accordance with Medicare regulations or non- Medicare payer requirements, as applicable. In the case of services not specified as inpatient-only, they are appropriately provided as inpatient services in accordance with the 2-midnight benchmark. Estimated LOS (days): 2 days is the estimated time the patient will need to remain in the hospital, assuming treatment plan goals are met and no additional complications. Post-Hospital Plan: Home (Jamal De La Fuente MD R1) Problem Qualifiers (1) Community acquired pneumonia: Qualified Codes: J18.1 - Lobar pneumonia, unspecified organism Jamal De La Fuente MD R1 Nov 11, 2017 09:54 Bridget Dickerson MD Nov 12, 2017 15:45
[2017-11-11] MEDS ORDERED: LACTULOSE SYRUP 20 GM/30 ML CUP PO PRN (10:15)
[2017-11-11] MEDS ORDERED: NALOXONE HCL 0.4 MG/ML AMP IV PUSH PRN (10:15)
[2017-11-11] MEDS ORDERED: RESP: ALBUTEROL 2.5 MG/IPRATROPIUM 0.5 MG NEB (PRN) INH (10:15)
[2017-11-11] MEDS ORDERED: SENNOSIDES 8.6 MG TAB PO PRN (10:15)
[2017-11-11] MEDS ORDERED: BISACODYL 10 MG SUPP RECTAL PRN (10:15)
[2017-11-11] MEDS ORDERED: ONDANSETRON HCL 4 MG/2 ML VIAL IVP PRN (10:15)
[2017-11-11] MEDS ORDERED: SODIUM CHLORIDE 0.9% FLUSH 10 ML FLUSH IV FLUSH PRN (10:15)
[2017-11-11] MEDS ORDERED: ENOXAPARIN SODIUM 40 MG/0.4 ML SYRINGE SQ SCH (10:15)
[2017-11-11] MEDS ORDERED: DEXTROSE 50% IN WATER 50 ML VIAL(D50) IV PUSH PRN (10:30)
[2017-11-11] MEDS ORDERED: GLUCAGON 1 MG/ML VIAL OTHER PRN (10:30)
[2017-11-11] MEDS ORDERED: RESP: ALBUTEROL 2.5 MG/3 ML NEB (PRN) NEB (10:45)
[2017-11-11] MEDS ORDERED: predniSONE 20 MG TAB PO SCH (11:00)
[2017-11-11] MEDS ORDERED: MAGNESIUM HYDROXIDE SUSP 30 ML CUP PO PRN (11:00)
[2017-11-11 11:39] LABS: CHOLESTEROL/ HDL RATIO 2.47 RATIO; HDL CHOLESTEROL 48.8 MG/DL (40.0-60.0)
[2017-11-11] MEDS ORDERED: TUBERCULIN, PPD 5 UNITS/0.1 ML SYRINGE I-DERMAL ONE (12:00)
[2017-11-11] MEDS: INSULIN ASPART SUPPLEMENTAL SCALE SQ SCH ×4 (12:00→20:57)
--- NOTE | 2017-11-11 13:47 | EKG ---
Date Performed: 11/11/2017 Time Performed: 07:36:31 PTAGE: 81 years EKG: SINUS BRADYCARDIA MODERATE ST DEPRESSION ABNORMAL ECG Compared to PREVIOUS TRACING , sinus rate is slower. PREVIOUS TRACIN02/16/2017 17.38 DOCTOR: Dorian Batista Interpretating Date/Time 11/11/2017 13:45:29
--- NOTE | 2017-11-11 15:05 | RADRPT ---
EXAM DATE/TIME: 11/11/2017 12:36 [facility] COMPARISON: No previous studies available for comparison. INDICATIONS : Abnormal labs. MEDICAL HISTORY : Gastroesophageal reflux disease. Hypertension. Hematuria. Diverticulitis. Diabetes. SURGICAL HISTORY : Coronary artery stent. Prostatectomy. Cardiac cath. ENCOUNTER: Initial ACUITY: 1 day PAIN SCORE: 10/31 LOCATION: Bilateral flank MEASUREMENTS: RIGHT KIDNEY: 9.9 x 5.7 x 7.6 cm LEFT KIDNEY: 14.0 x 9.5 x 7.0 cm FINDINGS: RIGHT KIDNEY: Renal cortex is normal in thickness and increased echotexture. No hydronephrosis, stone, or mass. R enal cyst measures 6.2 x 6.3 x 6.7 cm they're within the upper pole. LEFT KIDNEY: Renal cortex is normal in thickness and increased echotexture. No hydronephrosis, stone, or mass. C yst along the mid kidney measures 2.9 x 2.1 x 2.3 cm. BLADDER: Echogenic lesion within the base of the bladder measures 3.6 x 2.5 x 7.1 cm. CONCLUSION: 1. Echogenic kidneys which can be seen with medical renal disease. 2. Bilateral renal cysts. Echogenic area within the base of the bladder of uncertain etiology measuri ng 7.1 cm. No color flow noted. This could be related to protruding prostate gland, thrombus or other debris. Clinical correlation. Wade Beatty MD on November 11, 2017 at 15:00 Board Certified Radiologist. This report was verified electronically.
[2017-11-11] MEDS: HEPARIN SODIUM - SQ 10,000 UNITS/ML VIAL SQ SCH ×2 (15:10→20:50)
[2017-11-11] MEDS: RESP: ALBUTEROL 2.5 MG/IPRATROPIUM 0.5 MG NEB (SCH) INH ×2 (16:00→22:03)
[2017-11-11 18:59] LABS: AMORPHOUS SEDIMENT, URINE RARE; BILIRUBIN, URINE NEG (NEG); BLOOD, URINE TRACE (NEG); GLUCOSE,URINE 300 mg/dL (NEG); KETONE, URINE NEG (NEG); NITRITE,URINE NEG (NEG); PH, URINE 6.5 (5.0-8.5); SQUAMOUS EPITHELIAL CELL URINE <1 /hpf (0-5); URINE COLOR LIGHT-YELLOW (YELLW/STRAW); URINE LEUKOCYTE ESTERASE LARGE (NEG)
[2017-11-11] MEDS: ACETAMINOPHEN 325 MG TAB PO PRN (19:14)
[2017-11-11] MEDS: ZOLPIDEM TARTRATE 5 MG TAB PO PRN (20:49)
[2017-11-11] MEDS: PRAVASTATIN SOD 40 MG TAB PO SCH (20:49)
[2017-11-11] MEDS: SODIUM CHLORIDE 0.9% FLUSH 10 ML FLUSH IV FLUSH SCH (20:54)
[2017-11-12] VITALS (9 sets, daily range): BP systolic 116–171; BP diastolic 57–77; PULSE 64–108; RESP 16–18; TEMP 98.6–99.1; O2SAT 91–97
[2017-11-12] MEDS: RESP: ALBUTEROL 2.5 MG/IPRATROPIUM 0.5 MG NEB (SCH) INH ×4 (02:36→22:17)
[2017-11-12] MEDS: HEPARIN SODIUM - SQ 10,000 UNITS/ML VIAL SQ SCH ×3 (06:03→21:30)
[2017-11-12] MEDS: INSULIN ASPART SUPPLEMENTAL SCALE SQ SCH ×4 (08:52→21:30)
[2017-11-12] MEDS: AZITHROMYCIN 250 MG TAB PO SCH (08:53)
[2017-11-12] MEDS: SODIUM CHLORIDE 0.9% FLUSH 10 ML FLUSH IV FLUSH SCH ×2 (08:53→21:00)
[2017-11-12 08:58] LABS: ALBUMIN 3.6 GM/DL (3.4-5.0); ALKALINE PHOSPHATASE 69 U/L (45-117); ALT (GPT) 19 U/L (12-78); AST (GOT) 14 U/L (15-37); BLOOD UREA NITROGEN 22 MG/DL (7-18); CALCIUM 8.9 MG/DL (8.5-10.1); CREATININE 1.48 MG/DL (0.60-1.30); GLOMERULAR FILTRATION RATE 45 ML/MIN (>89); GLUCOSE,RANDOM 181 MG/DL (74-106); SODIUM (NA) 135 MEQ/L (136-145); TOTAL BILIRUBIN ADULT 0.9 MG/DL (0.2-1.0)
[2017-11-12 08:59] LABS: BICARBONATE 23.1 MEQ/L (21.0-32.0); CHLORIDE 103 MEQ/L (98-107)
[2017-11-12] MEDS ORDERED: cefTRIAXone INJ 2,000 MG in SODIUM CHLORIDE 0.9% INJ 100 ML IV SCH (09:00)
[2017-11-12] MEDS: cefTRIAXone INJ 1,000 MG in SODIUM CHLORIDE 0.9% INJ 100 ML IV SCH (09:00)
--- NOTE | 2017-11-12 10:39 | HHI.FPPN ---
Subjective Subjective Patient seen and examined with the resident team this am. Case reviewed and discussed Please refer to resident H&P for further details regarding HPI, ROS, PMH, SurgHx , SocHx, and FH In summary, patient is an 81yoM with a history of BPH, HTN, DM presenting with respiratory complaints x 1 week. Patient notes shortness of breath with exertion and congestion. He complains of subjective fever and cough. +Intermittent chest and abdominal pain. +Nausea Patient is seen in his hospital bed this am, he had previously been walking in the halls. He reports improvement this am, but still a ways from his baseline. Breathing improved. [facility] Objective Objective Last Impressions Chest X-Ray 11/11/17 0724 Signed Impressions: Service Date/Time: Saturday, November 11, 2017 07:29 - CONCLUSION: No acute cardiopulmonary disease. Martin Black MD Renal Ultrasound 11/11/17 0000 Signed Impressions: Service Date/Time: Saturday, November 11, 2017 12:36 - CONCLUSION: 1. Echogenic kidneys which can be seen with medical renal disease. 2. Bilateral renal cysts. Echogenic area within the base of the bladder of uncertain etiology measuring 7.1 cm. No color flow noted. This could be related to protruding prostate gland , thrombus or other debris. Clinical correlation. Wade Beatty MD Chest CT 11/11/17 0000 Signed Impressions: Service Date/Time: Saturday, November 11, 2017 08:10 - CONCLUSION: Right middle lobe pneumonia. Martin Black MD Laboratory Tests - Abnormals Test 11/11/17 15:50 11/11/17 18:45 11/11/17 21:08 11/12/17 06:35 Troponin I LESS THAN 0.02 NG/ML LESS THAN 0.02 NG/ML Urine Glucose (UA) 300 mg/dL Urine Occult Blood TRACE Urine Leukocyte Esterase LARGE Urine RBC 6 /hpf Urine WBC 18 /hpf Blood Urea Nitrogen 22 MG/DL Creatinine 1.48 MG/DL Random Glucose 181 MG/DL Aspartate Amino Transf (AST/SGOT) 14 U/L Sodium Level 135 MEQ/L Estimat Glomerular Filtration Rate 45 ML/MIN Vital Signs 11/11/17 11/11/17 11/11/17 11/11/17 12:04 16:03 20:00 20:00 Temp 97.4 97.7 98.3 Pulse 63 75 86 73 Resp 20 20 18 B/P (MAP) 127/59 (81) 155/72 (99) 151/70 (97) Pulse Ox 99 98 91 11/11/17 11/12/17 11/12/17 11/12/17 22:11 00:00 00:00 04:00 Temp 98.9 Pulse 76 78 76 Resp 16 B/P (MAP) 120/57 (78) Pulse Ox 93 95 11/12/17 08:00 Temp 98.6 Pulse 64 Resp 18 B/P (MAP) 133/63 (86) Pulse Ox 94 Physical exam GENERAL: wdwn elderly male, NAD Speaking in full sentences SKIN: Warm and dry. No rashes or lesions HEAD: Normocephalic. AT EYES: No scleral icterus. No injection or drainage. ENT: OP clear. MMM. NECK: Supple, trachea midline. No JVD or lymphadenopathy. CARDIOVASCULAR: Regular rate and rhythm without audible murmurs, gallops, or rubs. RESPIRATORY: Breath sounds with R basilar crackles, no wheezing, no increased work of breathing. No accessory muscle use. GASTROINTESTINAL: Abdomen soft, non-tender, nondistended. normal active BS. MUSCULOSKELETAL: No cyanosis, or edema. no calf tenderness BACK: Nontender without obvious deformity. No CVA tenderness. Assessment Assessment 81yoM with: CAP Leukocytosis HTN CAD s/p stenting DM BPH Abdominal pain with dark stools PLAN PLAN Empiric antibiotic therapy Supplemental oxygen as needed Urine legionella, pneumococcal antigen Influenza ST, r/o aspiration risk Hemoccult Resume home meds as appropriate Accu-checks SSI Renal ultrasound Patient seen and examined. Case reviewed and discussed. Agree with plan of care as discussed with me and documented in the resident note. Bridget Dickerson MD Nov 12, 2017 10:39
[2017-11-12 15:57] LABS: HEMOGLOBIN A1C 9.9 % (4.3-6.0)
[2017-11-12] MEDS: ACETAMINOPHEN 325 MG TAB PO PRN (17:20)
[2017-11-12] MEDS ORDERED: cloNIDine HCL 0.1 MG TAB PO ONE (18:00)
[2017-11-12] MEDS ORDERED: hydrALAZINE HCL 10 MG TAB PO PRN (18:15)
--- NOTE | 2017-11-12 19:55 | EKG ---
Date Performed: 11/11/2017 Time Performed: 18:00:38 PTAGE: 81 years EKG: Sinus rhythm WITH FIRST DEGREE AV BLOCK MINIMAL ST DEPRESSION Since previous tracing, no significant change noted ABNORMAL ECG PREVIOUS TRACING : 11/11/2017 13.42 DOCTOR: Alisa Orosco Interpretating Date/Time 11/12/2017 19:54:59
--- NOTE | 2017-11-12 19:55 | EKG ---
Date Performed: 11/11/2017 Time Performed: 13:42:47 PTAGE: 81 years EKG: SUPRAVENTRICULAR RHYTHM MINIMAL ST DEPRESSION Significant baseline artifact in lead V3 Sinc e previous tracing, no significant change noted BORDERLINE ECG PREVIOUS TRACING : 11/11/2017 07.36 DOCTOR: Alisa Orosco Interpretating Date/Time 11/12/2017 19:54:50
[2017-11-12 20:08] LABS: AUTOMATED NEUTROPHIL # 14.2 TH/MM3 (1.8-7.7); BASOPHIL % 0.2 % (0.0-2.0); EOSINOPHIL # 0.3 TH/MM3 (0-0.4); HEMATOCRIT 34.7 % (39.0-51.0); HEMOGLOBIN 11.5 GM/DL (13.0-17.0); LYMPH % 7.5 % (9.0-44.0); LYMPHOCYTE # 1.3 TH/MM3 (1.0-4.8); MEAN CELL VOLUME 94.9 FL (80.0-100.0); MEAN CORPUSCULAR HEMOGLOBIN 31.4 PG (27.0-34.0); MEAN CORPUSCULAR HGB CONC 33.1 % (32.0-36.0); MEAN PLATELET VOLUME 8.3 FL (7.0-11.0); MONO % 7.4 % (0.0-8.0); MONOCYTE # 1.3 TH/MM3 (0-0.9); NEUT % 82.9 % (16.0-70.0); PLATELET COUNT 190 TH/MM3 (150-450); RED BLOOD COUNT 3.66 MIL/MM3 (4.50-5.90); RED CELL DISTRIBUTION WIDTH 13.2 % (11.6-17.2); WHITE BLOOD COUNT 17.1 TH/MM3 (4.0-11.0)
[2017-11-12] MEDS: PRAVASTATIN SOD 40 MG TAB PO SCH (21:29)
[2017-11-12] MEDS: ZOLPIDEM TARTRATE 5 MG TAB PO PRN (21:45)
[2017-11-13] VITALS (12 sets, daily range): BP systolic 98–148; BP diastolic 51–74; PULSE 62–103; RESP 18–20; TEMP 97.2–99.3; O2SAT 91–94
[2017-11-13] MEDS: RESP: ALBUTEROL 2.5 MG/IPRATROPIUM 0.5 MG NEB (SCH) INH ×4 (04:53→20:58)
[2017-11-13] MEDS: HEPARIN SODIUM - SQ 10,000 UNITS/ML VIAL SQ SCH ×3 (06:00→20:40)
[2017-11-13 08:29] LABS: HEMATOCRIT 35.6 % (39.0-51.0); MEAN CELL VOLUME 94.9 FL (80.0-100.0); MEAN CORPUSCULAR HGB CONC 33.8 % (32.0-36.0); MEAN PLATELET VOLUME 8.8 FL (7.0-11.0); PLATELET COUNT 186 TH/MM3 (150-450); RED BLOOD COUNT 3.76 MIL/MM3 (4.50-5.90); RED CELL DISTRIBUTION WIDTH 13.3 % (11.6-17.2); WHITE BLOOD COUNT 14.5 TH/MM3 (4.0-11.0)
[2017-11-13 08:56] LABS: BICARBONATE 24.2 MEQ/L (21.0-32.0); CALCIUM 8.9 MG/DL (8.5-10.1); CREATININE 1.49 MG/DL (0.60-1.30)
--- NOTE | 2017-11-13 08:58 | HHI.FPPN ---
Subjective Remarks Mr. Morales is doing much better today. He is at 90% of normal. He states that around 8 PM last night, he felt warm and had some chills. He received a dose of Tylenol which resolved his symptoms and also took took away the upper right sided chest pain he was having. The chest pain is worse with inspiration. He denies nausea or vomiting, and he is pretty much better but he still has the chest pain. He will be okay with going home today. (Eri Orona MD R2) Objective Vitals Vital Signs Date Time Temp Pulse Resp B/P (MAP) Pulse Ox O2 Delivery O2 Flow Rate FiO2 11/13/17 07:48 94 Nasal Cannula 2.00 11/13/17 04:54 94 Nasal Cannula 2.00 11/13/17 04:10 98.1 103 18 98/51 (67) 93 11/13/17 03:44 75 11/13/17 03:00 95 Nasal Cannula 2.00 11/13/17 01:30 88 Nasal Cannula 2.00 11/13/17 00:00 Room Air 11/13/17 00:00 99.3 83 18 122/56 (78) 91 11/12/17 23:45 73 11/12/17 22:19 97 11/12/17 20:00 Room Air 11/12/17 20:00 99.0 83 18 116/58 (77) 91 11/12/17 19:44 100 11/12/17 16:00 108 11/12/17 16:00 99.1 100 18 171/77 (108) 92 11/12/17 12:00 79 11/12/17 12:00 98.7 69 18 143/65 (91) 94 I/O 11/12/17 11/12/17 11/12/17 11/13/17 11/13/17 11/13/17 07:00 15:00 23:00 07:00 15:00 23:00 Intake Total 580 ml 100 ml 680 ml Output Total 300 ml Balance -300 ml 580 ml 100 ml 680 ml Intake Oral 480 ml 680 ml IV Total 100 ml 100 ml Output Urine Total 300 ml # Voids 4 2 # Bowel Movements 0 (Eri Orona MD R2) Result Diagram: 11/13/17 0620 11/13/17 0620 Imaging Last 72 hours Impressions Chest X-Ray 11/11/17 0724 Signed Impressions: Service Date/Time: Saturday, November 11, 2017 07:29 - CONCLUSION: No acute cardiopulmonary disease. Martin Black MD Renal Ultrasound 11/11/17 0000 Signed Impressions: Service Date/Time: Saturday, November 11, 2017 12:36 - CONCLUSION: 1. Echogenic kidneys which can be seen with medical renal disease. 2. Bilateral renal cysts. Echogenic area within the base of the bladder of uncertain etiology measuring 7.1 cm. No color flow noted. This could be related to protruding prostate gland , thrombus or other debris. Clinical correlation. Wade Beatty MD Chest CT 11/11/17 0000 Signed Impressions: Service Date/Time: Saturday, November 11, 2017 08:10 - CONCLUSION: Right middle lobe pneumonia. Martin Black MD Objective Remarks GENERAL: wdwn elderly male, sitting at the side of his bed, eating breakfast SKIN: Warm and dry. No rashes or lesions HEAD: Normocephalic. AT EYES: No scleral icterus. No injection or drainage. ENT: OP clear. MMM. NECK: Supple, trachea midline. No JVD or lymphadenopathy. CARDIOVASCULAR: Regular rate and rhythm without audible murmurs, gallops, or rubs. RESPIRATORY: Breath sounds clear to auscultation, no wheezing, no crackles, no increased work of breathing. No accessory muscle use. GASTROINTESTINAL: Abdomen soft, non-tender, nondistended. normal active BS. MUSCULOSKELETAL: No pedal cyanosis or edema. Tender spot in his right upper chest BACK: Nontender without obvious deformity. No CVA tenderness. (Eko,Eri U R2) A/P Assessment and Plan 81 YO male w/PMHx HTN, DM type 2, and BPH with RML PNA on chest CT, likely community-acquired pneumonia Will discuss with Dr. Dickerson PLAN: 1. Mild CAP: -RML PNA on chest CT; CXR negative; WBC 19.3 on admission, down to 14.5 today -Continue Rocephin 1g IV q24h -Continue Azithromycin 500mg PO -Prednisone 40mg PO daily -Tylenol 650mg q6h PRN for fever >100.4 -Blood and urine cx negative 1 day -Legionella, pneumococcal urine ag pending -Resp panel -Influenza a/b negative -Duonebs q6h -Albuterol nebs q6h PRN -IS 2. CP: r/o ACS; intermittent in nature, possibly demand ischemia, appears to be a lower likelihood; however, pt has positive hx for CVD with proximal RCA stent placed in 2009 -EKG on admit with bradycardia to [address] depression V4-V5; 410 EKGs did not indicate ACS -Troponin <0.02 x3 -BNP 68 -Tele -Most likely pleuritic pain from pneumonia versus costochondritis -Continue home amlodipine 10mg daily -Continue home pravastatin 40mg qhs 3. DM type 2 +/- ALDA (Cr Baseline 1.3-1.5) w/Cr 1.56 on admit, 1.49 today -A1c 6.7 in 2013; A1c 9.9 on 11/11/17 -Hold home glipizide 5mg BID -Low Novolog SSI - [id number] units of sliding scale insulin on 11/12 -Start Levemir 5mg PO BID -Lipid panel wnl -Renal US showing renal disease 4. Cold/flu-like sxs -Possible viral prodrome -Flu/legionella/pneumococcal testing as above -Supportive care -Tylenol 650mg as above 5. Abdominal pain - resolved -Likely flu-like sxs -Zofran 4mg q8h IV PRN 6. Dizziness - resolved -Likely 2/2 flu-like sxs -No syncope/pre-syncope; no palpitations -Supportive care as above 7. FEN/GI/PPx: -Fluids: PO fluids -Electrolytes: will monitor daily labs and replete as necessary -Nutrition: diabetic diet -GI: no ppx indicated; not on steroids -PPx: Heparin 5000unit q8h Heme occult blood test pending PT eval and tx Ambien 5mg PO qhs for sleep Discharge Planning Possible discharge home today (Eko,Eri Overton MD R2) Attending Attestation Patient seen and examined. Case reviewed and discussed Agree with plan of care as discussed with me and documented in the resident note. patient with O2 desat to 83% per walk test. Advised patient that we will reassess. add steroids to treatment given extensive smoking history and likely component of COPD. (Bridget Dickerson MD) Problem List: (1) Community acquired pneumonia ICD Codes: J18.9 - Pneumonia, unspecified organism Status: Acute (2) Abdominal pain ICD Codes: R10.9 - Abdominal pain Status: Acute (3) Hx of coronary artery disease ICD Codes: Z86.79 - Hx of coronary artery disease Status: Acute (4) Dizziness ICD Codes: R42 - Dizziness and giddiness Status: Acute (5) Headache ICD Codes: R51 - Headache Status: Resolved (6) HTN (hypertension) ICD Codes: I10 - HTN (hypertension) Status: Chronic (7) FEN/GI/PPx (Eri Orona MD R2) Problem Qualifiers (1) Community acquired pneumonia: Qualified Codes: J18.1 - Lobar pneumonia, unspecified organism Eri Orona MD R2 Nov 13, 2017 08:58 Bridget Dickerson MD Nov 13, 2017 17:01
[2017-11-13] MEDS: INSULIN ASPART SUPPLEMENTAL SCALE SQ SCH ×4 (09:05→20:41)
[2017-11-13] MEDS: AZITHROMYCIN 250 MG TAB PO SCH (09:06)
[2017-11-13] MEDS: SODIUM CHLORIDE 0.9% FLUSH 10 ML FLUSH IV FLUSH SCH ×2 (09:06→20:42)
[2017-11-13] MEDS: cefTRIAXone INJ 1,000 MG in SODIUM CHLORIDE 0.9% INJ 100 ML IV SCH (09:06)
[2017-11-13] MEDS: ACETAMINOPHEN 325 MG TAB PO PRN (12:22)
[2017-11-13] MEDS: predniSONE 20 MG TAB PO SCH (15:31)
[2017-11-13] MEDS: ZOLPIDEM TARTRATE 5 MG TAB PO PRN (20:40)
[2017-11-13] MEDS: PRAVASTATIN SOD 40 MG TAB PO SCH (20:40)
[2017-11-13] MEDS: INSULIN DETEMIR 100 UNITS/ML VIAL SQ SCH (20:41)
[2017-11-14] VITALS (12 sets, daily range): BP systolic 137–160; BP diastolic 65–77; PULSE 62–90; RESP 18; TEMP 97.1–98.3; O2SAT 90–96
[2017-11-14] MEDS: RESP: ALBUTEROL 2.5 MG/IPRATROPIUM 0.5 MG NEB (SCH) INH ×4 (04:02→20:23)
[2017-11-14] MEDS: HEPARIN SODIUM - SQ 10,000 UNITS/ML VIAL SQ SCH ×3 (05:40→21:03)
[2017-11-14 07:10] LABS: HEMATOCRIT 36.5 % (39.0-51.0); HEMOGLOBIN 12.3 GM/DL (13.0-17.0); MEAN CORPUSCULAR HEMOGLOBIN 31.8 PG (27.0-34.0); MEAN CORPUSCULAR HGB CONC 33.8 % (32.0-36.0); MEAN PLATELET VOLUME 8.3 FL (7.0-11.0); PLATELET COUNT 210 TH/MM3 (150-450); RED BLOOD COUNT 3.88 MIL/MM3 (4.50-5.90); RED CELL DISTRIBUTION WIDTH 12.8 % (11.6-17.2); WHITE BLOOD COUNT 12.4 TH/MM3 (4.0-11.0)
[2017-11-14 07:36] LABS: BICARBONATE 22.5 MEQ/L (21.0-32.0); CREATININE 1.55 MG/DL (0.60-1.30)
[2017-11-14] MEDS: AZITHROMYCIN 250 MG TAB PO SCH (08:16)
[2017-11-14] MEDS: predniSONE 20 MG TAB PO SCH (08:16)
[2017-11-14] MEDS: SODIUM CHLORIDE 0.9% FLUSH 10 ML FLUSH IV FLUSH SCH ×2 (08:16→21:04)
[2017-11-14] MEDS: INSULIN ASPART SUPPLEMENTAL SCALE SQ SCH ×4 (08:33→21:04)
[2017-11-14] MEDS: cefTRIAXone INJ 1,000 MG in SODIUM CHLORIDE 0.9% INJ 100 ML IV SCH (12:32)
[2017-11-14] MEDS: INSULIN DETEMIR 100 UNITS/ML VIAL SQ SCH ×2 (12:47→21:04)
--- NOTE | 2017-11-14 14:32 | RADRPT ---
EXAM DATE/TIME: 11/14/2017 13:26 [facility] COMPARISON: No previous studies available for comparison. INDICATIONS : Chest pain and pneumonia. DOSE: 1.09 mCi Tc99m DTPA 8.8 mCi Tc99m MAA MEDICAL HISTORY : Hypertension. Diabetes mellitus type 2. Chronic obstructive pulmonary disease. SURGICAL HISTORY : Prostatectomy. Colon resection. Angioplasty. ENCOUNTER: Initial ACUITY: 1 day PAIN SCALE: 0/10 LOCATION: Bilateral chest TECHNIQUE: Following five minutes of tidal breathing of DTPA aerosol, planar images of the lungs were performed in eight projections. The patient was then injected with MAA, and eight-view perfusion scan was perf ormed. FINDINGS: The ventilation is inhomogeneous with marked central airway deposition. Perfusion is very homogeneous without perfusion defects. CONCLUSION: Low probability for pulmonary embolism. Eligio Conti MD FACR on November 14, 2017 at 14:29 Board Certified Radiologist. This report was verified electronically.
--- NOTE | 2017-11-14 14:34 | RADRPT ---
EXAM DATE/TIME: 11/14/2017 14:15 [facility] COMPARISON: CHEST SINGLE AP, November 11, 2017, 7:29. INDICATIONS : Embolus. Right middle lobe pneumonia. MEDICAL HISTORY : Gastroesophageal reflux disease. Hypertension. Hematuria. Diverticulitis. Diabetes. SURGICAL HISTORY : Coronary artery stent. Prostatectomy. Cardiac cath. ENCOUNTER: Subsequent ACUITY: 3 days PAIN SCORE: 0/10 LOCATION: Right FINDINGS: PA and lateral views of the chest demonstrate hyperaeration and bibasilar linear densities greater ri ght lower lobe. Minimal density right middle lobe. The cardiomediastinal contours are unremarkable. Osseous structures are intact. CONCLUSION: 1. Bibasilar scarring. 2. Right middle lobe opacities, unchanged. Wade Beatty MD on November 14, 2017 at 14:30 Board Certified Radiologist. This report was verified electronically.
--- NOTE | 2017-11-14 15:06 | HHI.FPPN ---
Subjective Remarks Mr Morales had no acute events overnight. He feels like he is back at his baseline but still has some mild residual pain/discomfort in right upper chest with deep inspiration. He feels ready for discharge and denies CP, SOB, N/V/D, and DVT pain. (Jamal De La Fuente MD R1) Objective Vitals Vital Signs Date Time Temp Pulse Resp B/P (MAP) Pulse Ox O2 Delivery O2 Flow Rate FiO2 11/14/17 12:20 97.8 74 18 146/67 (93) 94 11/14/17 09:07 Nasal Cannula 2.00 11/14/17 08:04 97.1 83 18 152/71 (98) 90 11/14/17 04:06 90 Nasal Cannula 2.00 11/14/17 04:00 97.2 85 18 144/67 (92) 95 11/14/17 03:45 62 11/14/17 00:00 Nasal Cannula 2.00 11/14/17 00:00 97.4 69 18 143/65 (91) 92 11/13/17 23:41 62 11/13/17 21:00 Nasal Cannula 2.00 11/13/17 20:00 98.2 78 20 148/74 (98) 92 11/13/17 19:46 84 11/13/17 18:00 Nasal Cannula 2.00 11/13/17 16:00 98.9 84 20 141/67 (91) 92 11/13/17 16:00 76 11/13/17 15:36 92 21 I/O 11/13/17 11/13/17 11/13/17 11/14/17 11/14/17 11/14/17 07:00 15:00 23:00 07:00 15:00 23:00 Intake Total 680 ml 480 ml Balance 680 ml 480 ml Intake Oral 680 ml 480 ml # Voids 2 2 # Bowel Movements 0 (Jamal De La Fuente MD R1) Result Diagram: 11/14/17 0545 11/14/17 0545 Imaging Last 24 hours Impressions Lung Scan-VQ Nuclear Medicine 11/14/17 0000 Signed Impressions: Service Date/Time: Tuesday, November 14, 2017 13:26 - CONCLUSION: Low probability for pulmonary embolism. Eligio Conti MD FACR Chest X-Ray 11/14/17 0000 Signed Impressions: Service Date/Time: Tuesday, November 14, 2017 14:15 - CONCLUSION: 1. Bibasilar scarring. 2. Right middle lobe opacities, unchanged. Wade Beatty MD Objective Remarks GENERAL: wdwn elderly male, sitting at the side of his bed, eating breakfast SKIN: Warm and dry. No rashes or lesions HEAD: Normocephalic. AT EYES: No scleral icterus. No injection or drainage. ENT: OP clear. MMM. NECK: Supple, trachea midline. No JVD or lymphadenopathy. CARDIOVASCULAR: Regular rate and rhythm without audible murmurs, gallops, or rubs. RESPIRATORY: Breath sounds clear to auscultation, no wheezing, no crackles, no increased work of breathing. No accessory muscle use. GASTROINTESTINAL: Abdomen soft, non-tender, nondistended. normal active BS. MUSCULOSKELETAL: No pedal cyanosis or edema. Tender spot in his right upper chest BACK: Nontender without obvious deformity. No CVA tenderness. Medications and IVs Current Medications Medications (Trade) Dose Ordered Sig/Jhon Route Start Time Stop Time Status Last Admin (Norvasc) 10 mg DAILY PO 11/12/17 09:00 11/14/17 08:16 (Pravachol) 40 mg HS PO 11/11/17 21:00 11/13/17 20:40 (NS Flush) 2 ml UNSCH PRN IV FLUSH 11/11/17 10:15 (NS Flush) 2 ml BID IV FLUSH 11/11/17 21:00 11/14/17 08:16 (Tylenol) 650 mg Q4H PRN PO 11/11/17 10:15 11/13/17 12:22 (Zofran Inj) 4 mg Q6H PRN IVP 11/11/17 10:15 11/12/17 06:08 (Narcan Inj) 0.4 mg UNSCH PRN IV PUSH 11/11/17 10:15 (Milk Of Magnesia Liq) 30 ml Q12HR PRN PO 11/11/17 11:00 (Senokot) 17.2 mg Q12H PRN PO 11/11/17 10:15 (Dulcolax Supp) 10 mg DAILY PRN RECTAL 11/11/17 10:15 (Lactulose Liq) 30 ml DAILY PRN PO 11/11/17 10:15 Ceftriaxone Sodium 1000 mg/ Sodium Chloride 100 ml @ 200 mls/hr Q24H IV 11/12/17 10:00 11/14/17 12:32 (Zithromax) 500 mg DAILY PO 11/12/17 09:00 11/14/17 08:16 (Duoneb Neb) 1 ampule Q6HR NEB INH 11/11/17 16:00 11/14/17 09:05 (NovoLOG SUPPLEMENTAL SCALE) 1 ACHS SLIDING SCALE SQ 11/11/17 12:00 11/14/17 12:31 (D50w (Vial) Inj) 50 ml UNSCH PRN IV PUSH 11/11/17 10:30 (Glucagon Inj) 1 mg UNSCH PRN OTHER 11/11/17 10:30 (Albuterol Neb) 2.5 mg Q6HR NEB PRN NEB 11/11/17 10:45 (Heparin Inj) 5,000 units Q8HR SQ 11/11/17 14:00 11/14/17 05:40 (Ambien) 5 mg HS PRN PO 11/11/17 17:45 11/13/17 20:40 (Apresoline) 10 mg Q8HR PRN PO 11/12/17 18:15 (Levemir Inj) 5 units Q12HR SQ 11/13/17 21:00 11/14/17 12:47 (Deltasone) 40 mg DAILY PO 11/13/17 14:45 11/14/17 08:16 (Jamal De La Fuente MD R1) Urinary Catheter: No (Jamal De La Fuente MD R1) Vascular Central Line Catheter: No (Jamal De La Fuente MD R1) A/P Assessment and Plan 81 YO male w/PMHx HTN, DM type 2, and BPH with RML PNA on chest CT, likely community-acquired pneumonia DW Dr. Dickerson PLAN: 1. Mild CAP: -RML PNA on chest CT; CXR negative; WBC 19.3 on admission, down to 12.4 on 11/14 -Rocephin 1g IV q24h; discharge with Levaquin -Continue Azithromycin 500mg PO -Prednisone 40mg PO daily -Tylenol 650mg q6h PRN for fever >100.4 -Blood and urine cx negative 2 days -Legionella, pneumococcal urine ag negative -Resp panel pending -Influenza a/b negative -Duonebs q6h -Albuterol nebs q6h PRN -IS 2. CP: r/o ACS; intermittent in nature, possibly demand ischemia, appears to be a lower likelihood; however, pt has positive hx for CVD with proximal RCA stent placed in 2009 -EKG on admit with bradycardia to [address] depression V4-V5; 410 EKGs did not indicate ACS -Troponin <0.02 x3 -BNP 68 -Tele -Most likely pleuritic pain from pneumonia versus costochondritis -Continue home amlodipine 10mg daily -Continue home pravastatin 40mg qhs -D-dimer elevated to 1.53 -VQ scan shows low probability of PE -CXR 11/14 shows stable RML opacities -PPD negative -Will do walk test today as determinant for dc 3. DM type 2 +/- ALDA (Cr Baseline 1.3-1.5) w/Cr 1.56 on admit, 1.55 11/14 -A1c 6.7 in 2013; A1c 9.9 on 11/11/17 -Hold home glipizide 5mg BID; due to elevated A1C plan to dc with glipizide 10mg AM and 5mg PM -Low Novolog SSI - required 23 units SSI on 11/13 -Levemir 10u BID -Lipid panel wnl -Renal US showing renal disease 4. Cold/flu-like sxs -Possible viral prodrome -Flu/legionella/pneumococcal testing as above -Supportive care -Tylenol 650mg as above 5. Abdominal pain - resolved -Likely flu-like sxs -Zofran 4mg q8h IV PRN 6. Dizziness - resolved -Likely 2/2 flu-like sxs -No syncope/pre-syncope; no palpitations -Supportive care as above 7. FEN/GI/PPx: -Fluids: PO fluids -Electrolytes: will monitor daily labs and replete as necessary -Nutrition: diabetic diet -GI: no ppx indicated; not on steroids -PPx: Heparin 5000unit q8h Heme occult blood test pending PT eval and tx Ambien 5mg PO qhs for sleep Discharge Planning Possible discharge home today (Jamal De La Fuente MD R1) Attending Attestation Patient seen and examined. Case reviewed and discussed. Agree with plan of care as discussed with me and documented in the resident note. (Verzal,Bridget R. MD) Problem List: (1) Community acquired pneumonia ICD Codes: J18.9 - Pneumonia, unspecified organism Status: Acute (2) Abdominal pain ICD Codes: R10.9 - Abdominal pain Status: Acute (3) Hx of coronary artery disease ICD Codes: Z86.79 - Hx of coronary artery disease Status: Acute (4) Dizziness ICD Codes: R42 - Dizziness and giddiness Status: Acute (5) Headache ICD Codes: R51 - Headache Status: Resolved (6) HTN (hypertension) ICD Codes: I10 - HTN (hypertension) Status: Chronic (7) FEN/GI/PPx (Jamal De La Fuente MD R1) Problem Qualifiers (1) Community acquired pneumonia: Qualified Codes: J18.1 - Lobar pneumonia, unspecified organism (2) HTN (hypertension): Qualified Codes: I10 - Essential (primary) hypertension Jamal De La Fuente MD R1 Nov 14, 2017 15:06 Bridget Dickerson MD Nov 19, 2017 09:19
[2017-11-14] MEDS: PRAVASTATIN SOD 40 MG TAB PO SCH (21:03)
[2017-11-14] MEDS: ZOLPIDEM TARTRATE 5 MG TAB PO PRN (21:08)
[2017-11-15] VITALS (8 sets, daily range): BP systolic 126–176; BP diastolic 61–84; PULSE 72–86; RESP 18–20; TEMP 97.3–97.8; O2SAT 91–95
[2017-11-15] MEDS: RESP: ALBUTEROL 2.5 MG/IPRATROPIUM 0.5 MG NEB (SCH) INH ×2 (03:37→09:40)
[2017-11-15] MEDS: HEPARIN SODIUM - SQ 10,000 UNITS/ML VIAL SQ SCH (05:24)
[2017-11-15 07:06] LABS: HEMATOCRIT 34.8 % (39.0-51.0); HEMOGLOBIN 11.8 GM/DL (13.0-17.0); MEAN CORPUSCULAR HEMOGLOBIN 31.6 PG (27.0-34.0); MEAN CORPUSCULAR HGB CONC 33.9 % (32.0-36.0); MEAN PLATELET VOLUME 8.1 FL (7.0-11.0); PLATELET COUNT 237 TH/MM3 (150-450); RED BLOOD COUNT 3.75 MIL/MM3 (4.50-5.90); RED CELL DISTRIBUTION WIDTH 13.3 % (11.6-17.2); WHITE BLOOD COUNT 15.5 TH/MM3 (4.0-11.0)
[2017-11-15 07:36] LABS: BICARBONATE 26.2 MEQ/L (21.0-32.0); CALCIUM 9.5 MG/DL (8.5-10.1); CREATININE 1.37 MG/DL (0.60-1.30)
[2017-11-15] MEDS: predniSONE 20 MG TAB PO SCH (08:20)
[2017-11-15] MEDS: AZITHROMYCIN 250 MG TAB PO SCH (08:20)
[2017-11-15] MEDS: SODIUM CHLORIDE 0.9% FLUSH 10 ML FLUSH IV FLUSH SCH (08:20)
[2017-11-15] MEDS: INSULIN ASPART SUPPLEMENTAL SCALE SQ SCH ×2 (08:21→12:26)
[2017-11-15] MEDS: INSULIN DETEMIR 100 UNITS/ML VIAL SQ SCH (08:22)
[2017-11-15] MEDS ORDERED: SODIUM CHLORID 0.9% 500 ML INJ 500 ML IV ONE (08:45)
--- NOTE | 2017-11-15 09:33 | HHI.FPPN ---
Subjective Remarks Mr Morales had no acute events overnight. He didn't sleep as well but attributes this to drinking a cup of coffee in the evening. He feels ready to go home today. Denies CP, SOB, N/V/D and DVT pain. (Jamal De La Fuente MD R1) Objective Vitals Vital Signs Date Time Temp Pulse Resp B/P (MAP) Pulse Ox O2 Delivery O2 Flow Rate FiO2 11/15/17 07:59 72 11/15/17 07:53 97.6 72 18 176/84 (114) 95 11/15/17 04:00 Nasal Cannula 1.00 11/15/17 04:00 97.8 82 20 145/76 (99) 91 11/15/17 04:00 72 11/15/17 03:41 93 Nasal Cannula 2.00 11/15/17 00:15 80 11/15/17 00:00 97.3 86 20 126/61 (82) 91 11/15/17 00:00 Nasal Cannula 1.00 11/14/17 20:05 Nasal Cannula 1.00 11/14/17 20:05 98.3 89 18 137/66 (89) 96 11/14/17 20:00 84 11/14/17 19:00 Nasal Cannula 1.00 11/14/17 17:12 2.00 11/14/17 16:42 96 Nasal Cannula 2.00 11/14/17 16:17 97.7 87 18 160/77 (104) 96 11/14/17 16:00 90 11/14/17 12:20 97.8 74 18 146/67 (93) 94 11/14/17 12:00 84 I/O 11/14/17 11/14/17 11/14/17 11/15/17 11/15/17 11/15/17 07:00 15:00 23:00 07:00 15:00 23:00 Intake Total 700 ml 480 ml Balance 700 ml 480 ml Intake Oral 600 ml 480 ml IV Total 100 ml # Voids 3 2 # Bowel Movements 0 0 (Jamal De La Fuente MD R1) Result Diagram: 11/15/17 0513 11/15/17 0513 Imaging Last 48 hours Impressions Lung Scan-VQ Nuclear Medicine 11/14/17 0000 Signed Impressions: Service Date/Time: Tuesday, November 14, 2017 13:26 - CONCLUSION: Low probability for pulmonary embolism. Eligio Conti MD FACR Chest X-Ray 11/14/17 0000 Signed Impressions: Service Date/Time: Tuesday, November 14, 2017 14:15 - CONCLUSION: 1. Bibasilar scarring. 2. Right middle lobe opacities, unchanged. Wade Beatty MD Objective Remarks GENERAL: wdwn elderly male, lying in bed SKIN: Warm and dry. No rashes or lesions HEAD: Normocephalic. AT EYES: No scleral icterus. No injection or drainage. ENT: OP clear. MMM. NECK: Supple, trachea midline. No JVD or lymphadenopathy. CARDIOVASCULAR: Regular rate and rhythm without audible murmur, gallop, or rub. RESPIRATORY: Breath sounds clear to auscultation, no wheezing, no crackles, no increased work of breathing. No accessory muscle use. GASTROINTESTINAL: Abdomen soft, non-tender, nondistended. normal active BS. MUSCULOSKELETAL: No pedal cyanosis or edema. Tender spot in his right upper chest BACK: Nontender without obvious deformity. No CVA tenderness. Medications and IVs Current Medications Medications (Trade) Dose Ordered Sig/Jhon Route Start Time Stop Time Status Last Admin (Norvasc) 10 mg DAILY PO 11/12/17 09:00 11/15/17 08:20 (Pravachol) 40 mg HS PO 11/11/17 21:00 11/14/17 21:03 (NS Flush) 2 ml UNSCH PRN IV FLUSH 11/11/17 10:15 (NS Flush) 2 ml BID IV FLUSH 11/11/17 21:00 11/15/17 08:20 (Tylenol) 650 mg Q4H PRN PO 11/11/17 10:15 11/13/17 12:22 (Zofran Inj) 4 mg Q6H PRN IVP 11/11/17 10:15 11/12/17 06:08 (Narcan Inj) 0.4 mg UNSCH PRN IV PUSH 11/11/17 10:15 (Milk Of Magnesia Liq) 30 ml Q12HR PRN PO 11/11/17 11:00 11/14/17 19:30 (Senokot) 17.2 mg Q12H PRN PO 11/11/17 10:15 (Dulcolax Supp) 10 mg DAILY PRN RECTAL 11/11/17 10:15 (Lactulose Liq) 30 ml DAILY PRN PO 11/11/17 10:15 Ceftriaxone Sodium 1000 mg/ Sodium Chloride 100 ml @ 200 mls/hr Q24H IV 11/12/17 10:00 11/14/17 12:32 (Zithromax) 500 mg DAILY PO 11/12/17 09:00 11/15/17 08:20 (Duoneb Neb) 1 ampule Q6HR NEB INH 11/11/17 16:00 11/15/17 03:37 (NovoLOG SUPPLEMENTAL SCALE) 1 ACHS SLIDING SCALE SQ 11/11/17 12:00 11/15/17 08:21 (D50w (Vial) Inj) 50 ml UNSCH PRN IV PUSH 11/11/17 10:30 (Glucagon Inj) 1 mg UNSCH PRN OTHER 11/11/17 10:30 (Albuterol Neb) 2.5 mg Q6HR NEB PRN NEB 11/11/17 10:45 (Heparin Inj) 5,000 units Q8HR SQ 11/11/17 14:00 11/15/17 05:24 (Ambien) 5 mg HS PRN PO 11/11/17 17:45 11/14/17 21:08 (Apresoline) 10 mg Q8HR PRN PO 11/12/17 18:15 (Deltasone) 40 mg DAILY PO 11/13/17 14:45 11/15/17 08:20 (Levemir Inj) 10 units Q12HR SQ 11/14/17 21:00 11/15/17 08:22 Sodium Chloride 500 ml @ 500 mls/hr BOLUS ONCE IV 11/15/17 08:45 11/15/17 09:44 (Jamal De La Fuente MD R1) Urinary Catheter: No (Jamal De La Fuente MD R1) Vascular Central Line Catheter: No (Jamal De La Fuente MD R1) A/P Assessment and Plan 81 YO male w/PMHx HTN, DM type 2, and BPH with RML PNA on chest CT, likely community-acquired pneumonia Seen with Dr Orona, dw Dr. Dickerson PLAN: 1. Mild CAP: -RML PNA on chest CT; CXR negative; WBC 19.3 on admission, 15.5 on 11/14 (day 2 of prednisone) -Rocephin 1g IV q24h; discharge with 5 days of Levaquin -Continue Azithromycin 500mg PO; discontinue on discharge w/low concern for atypical PNA -Prednisone 40mg PO daily; discharge with no steroids -Tylenol 650mg q6h PRN for fever >100.4 -Blood and urine cx negative 3 days -Legionella, pneumococcal urine ag negative -Resp panel pending -Influenza a/b negative -Duonebs q6h -Albuterol nebs q6h PRN -IS -Will do walk test today as determinant for dc 2. CP: r/o ACS; intermittent in nature, possibly demand ischemia, appears to be a lower likelihood; however, pt has positive hx for CVD with proximal RCA stent placed in 2009 -EKG on admit with bradycardia to [address] depression V4-V5; 410 EKGs did not indicate ACS -Troponin <0.02 x3 -BNP 68 -Tele -Most likely pleuritic pain from pneumonia versus costochondritis -Continue home amlodipine 10mg daily -Continue home pravastatin 40mg qhs -D-dimer elevated to 1.53 -VQ scan shows low probability of PE -CXR 11/14 shows stable RML opacities -PPD negative 3. DM type 2 +/- ALDA (Cr Baseline 1.3-1.5) w/Cr 1.56 on admit, 1.55 11/14 -A1c 6.7 in 2013; A1c 9.9 on 11/11/17 -Hold home glipizide 5mg BID; due to elevated A1C plan to dc with glipizide 10mg AM and 5mg PM -Low Novolog SSI - required 34 units SSI on 11/14 -Levemir 10u BID -Lipid panel wnl -Renal US showing renal disease 4. Cold/flu-like sxs -Possible viral prodrome -Flu/legionella/pneumococcal testing neg -Supportive care -Tylenol 650mg as above 5. Abdominal pain - resolved -Likely flu-like sxs -Zofran 4mg q8h IV PRN 6. Dizziness - resolved -Likely 2/2 flu-like sxs -No syncope/pre-syncope; no palpitations -Supportive care as above 7. FEN/GI/PPx: -Fluids: PO fluids -Electrolytes: will monitor daily labs and replete as necessary -Nutrition: diabetic diet -GI: no ppx indicated; not on steroids -PPx: Heparin 5000unit q8h Heme occult blood test pending PT eval and tx Ambien 5mg PO qhs for sleep Discharge Planning Possible discharge home today (Jamal De La Fuente MD R1) Attending Attestation Patient seen and examined. Case reviewed and discussed. Agree with plan of care as discussed with me and documented in the resident note. (Bridget Dickerson MD) Problem List: (1) Community acquired pneumonia ICD Codes: J18.9 - Pneumonia, unspecified organism Status: Acute (2) Abdominal pain ICD Codes: R10.9 - Abdominal pain Status: Acute (3) Hx of coronary artery disease ICD Codes: Z86.79 - Hx of coronary artery disease Status: Acute (4) Dizziness ICD Codes: R42 - Dizziness and giddiness Status: Acute (5) Headache ICD Codes: R51 - Headache Status: Resolved (6) HTN (hypertension) ICD Codes: I10 - HTN (hypertension) Status: Chronic (7) FEN/GI/PPx (Jamal De La Fuente MD R1) Problem Qualifiers (1) Community acquired pneumonia: Qualified Codes: J18.1 - Lobar pneumonia, unspecified organism (2) HTN (hypertension): Qualified Codes: I10 - Essential (primary) hypertension Jamal De La Fuente MD R1 Nov 15, 2017 09:33 Bridget Dickerson MD Nov 19, 2017 09:20
[2017-11-15] MEDS ORDERED: GLIP5TAB8 PO (10:09)
--- NOTE | 2017-11-15 10:11 | HHI.DCPOC ---
Discharge Care Plan Goals to Promote Your Health * To prevent worsening of your condition and complications, please take your antibiotics until complete. Please take your other medications as prescribed. We are changing your glipizide to: two 5mg tablets every morning 30 minutes before breakfast and one 5mg tablet before dinner due to your A1C level being 9.9. * To maintain your health at the optimal level, please see your primary care doctor within 1 week. Directions to Meet Your Goals Take your medications as prescribed Follow your dietary instruction Follow activity as directed Keep your appointments as scheduled Take your immunizations and boosters as scheduled If your symptoms worsen call your PCP, if no PCP go to Urgent Care Center or Emergency Room Smoking is Dangerous to Your Health. Avoid second hand smoke Call the 24-hour hour crisis hotline for domestic abuse at Jamal De La Fuente MD R1 Nov 15, 2017 10:11
[2017-11-15] MEDS ORDERED: LEVA750T9 PO (10:14)
[2017-11-15] MEDS: cefTRIAXone INJ 1,000 MG in SODIUM CHLORIDE 0.9% INJ 100 ML IV SCH (10:45)
== END 2017-11-15 14:05 | disposition home or self-care (01) | DRG 194 ==
LOC: NEPE 07:10 → NEDA 09:29 → N04A 10:55
PROVIDERS: ADMIT Family Medicine; ATTEND Family Medicine
DX: J18.9 Pneumonia, unspecified organism (principal); N17.9 Acute kidney failure, unspecified; E11.9 Type 2 diabetes mellitus without complications; Z79.84 Long term (current) use of oral hypoglycemic drugs; Z66 Do not resuscitate; I10 Essential (primary) hypertension; H91.90 Unspecified hearing loss, unspecified ear; I25.10 Atherosclerotic heart disease of native coronary artery without angina pectoris; Z95.5 Presence of coronary angioplasty implant and graft; R42 Dizziness and giddiness; R07.81 Pleurodynia; Z85.46 Personal history of malignant neoplasm of prostate; Z87.891 Personal history of nicotine dependence
CPT/HCPCS: 71045; 71046; 71250; 76775; 78582; 80048; 80053; 80061; 81001; 82272; 82550; 82947; 82948; 83036; 83605; 83735; 83880; 84443; 84484; 85025; 85027; 85379; 85610; 85730; 87040; 87086; 87449; 87804; 93005; 94150; 94618; 94640; 94664; 96365; A9540; A9567; J0456; J0696; J1644; J1815; J2405; J7040; J7050; J7512

== ENCOUNTER 2018-04-05 12:43 | Emergency (ER) | payer MEDICARE, OTHER ==
[~2018-04-05] VITALS: Ht 182.9 cm; Wt 68.0 kg
[~2018-04-05 12:43] MED LIST changes: -AZIT250T3 PO; -GLIP5 PO; +GLIP5TAB8 PO; +LEVA750T9 PO; -PROS5TAB2 PO
[2018-04-05 12:51] VITALS: BP 151/67; PULSE 70; RESP 20; TEMP 97.8; O2SAT 97
[2018-04-05 13:13] VITALS: BP 160/76; PULSE 66; RESP 19; O2SAT 99
[2018-04-05] MEDS ORDERED: SODIUM CHLORIDE 0.9% FLUSH 10 ML FLUSH IV FLUSH PRN (13:15)
--- NOTE | 2018-04-05 13:17 | PD ---
HPI Chief Complaint: Dizziness Time Seen by Provider: 12:59 Travel History International Travel<30 days: No Contact w/Intl Traveler<30days: No Traveled to known affect area: No History of Present Illness HPI Patient comes to the emergency department complaining of lower abdominal cramping is been gone ongoing intermittently 6 days. Patient denies any darkening of stool or blood in stool. Patient reports he does have blood in his urine but his urologist told him that was normal secondary to his prostate. Patient saw his primary care doctor and was started on antibiotics for the diarrhea. Patient denies other recent antibiotic use. Denies any fevers, chest pain, shortness of breath, or back pain. Patient reports that he did have a cough that got better since being on antibiotics. Patient reports when the pain comes on it radiates superiorly and causes him to feel dizzy. Denies anything making symptoms worse. PFSH Past Medical History Arthritis: No Asthma: No Autoimmune Disease: No Anxiety: No Depression: No Heart Rhythm Problems: No Cancer: No Cardiac Catheterization: Yes (1 STENT) Cardiovascular Problems: Yes (HTN) High Cholesterol: No Chest Pain: Yes Congestive Heart Failure: No COPD: No Diabetes: Yes Patient Takes Glucophage: No Diminished Hearing: Yes ([employer] [place]) Diverticulitis: Yes Endocrine: Yes Gastrointestinal Disorders: Yes (DIVERTICULITIS ) GERD: Yes Genitourinary: Yes Hiatal Hernia: No Hypertension: Yes Immune Disorder: No Implanted Vascular Access Dvce: Yes Kidney Stones: No Musculoskeletal: Yes Neurologic: No Psychiatric: No Reproductive: No Respiratory: No Renal Failure: No Sleep Apnea: No Thyroid Disease: No Ulcer: No ?: Not Past Surgical History Abdominal Surgery: Yes (COLON RESECTION) AICD: No Arteriovenous Shunt: No Cardiac Surgery: Yes (STENT PLACEMENT) Coronary Artery Bypass Graft: No Coronary Stent: Yes (x1 stent, RCA) Ear Surgery: No Endocrine Surgery: No Eye Surgery: Yes (IMPLANTS) Genitourinary Surgery: Yes (PROSTATE) Insulin Pump: No Joint Replacement: No Neurologic Surgery: No Oral Surgery: No Pacemaker: No Thoracic Surgery: No Other Surgery: Yes Social History Alcohol Use: No Tobacco Use: No Substance Use: No Allergies-Medications (Allergen,Severity, Reaction): Coded Allergies: codeine (Verified Allergy, Severe, Hallucinations, 04/05/18) amoxicillin (Verified Allergy, Unknown, Nausea/Vomiting, 04/05/18) clavulanic acid (Verified Allergy, Unknown, Nausea/Vomiting, 04/05/18) Reported Meds & Prescriptions Reported Meds & Active Scripts Active Glipizide 5 Mg Tab 5 Mg PO DIRECTED Take 2 tabs 30 mins before breakfast and one tab 30 mins before dinner. Reported Sulfamethoxazole-Trimethoprim 800-160 Mg Tab 1 Tab PO BID Metronidazole 500 Mg Tab 500 Mg PO QID Complete Multi 50+ Tablet (Multivit-Min/FA/Lycopen/Lutein) 500 Mcg-300 Mcg-250 Mcg Tablet 1,000 Complete Multi 50+ Tablet (Multivit-Min/FA/Lycopen/Lutein) 500 Mcg-300 Mcg-250 Mcg Tablet 1,000 Ferrous Sulfate 325 Mg (65 Mg Iron) Tablet 325 Mg PO BIDPC Ascorbic Acid 500 Mg Tab 500 Mg PO BID Pravastatin 40 Mg Tab 40 Mg PO DAILY Glipizide 5 Mg Tab 5 Mg PO BIDAC Take 30 minutes before a meal Carvedilol 12.5 Mg Tab 12.5 Mg PO BID Review of Systems Except as stated in HPI: all other systems reviewed are Neg Physical Exam Narrative GENERAL: Well-developed, well nourished, in no acute distress, and non-ill appearing. SKIN: Focused skin assessment warm and dry. HEAD: Atraumatic. Normocephalic. EYES: Pupils equal and round. EOMI. No scleral icterus. No injection or drainage. ENT: No nasal bleeding or discharge. Mucous membranes pink and moist. NECK: Trachea midline. Supple. No nuclear rigidity. CARDIOVASCULAR: Regular rate and rhythm. No murmur appreciated. RESPIRATORY: No accessory muscle use. No respiratory distress. Clear to auscultation. Breath sounds equal bilaterally. GASTROINTESTINAL: Abdomen soft, non-tender, nondistended, and no guarding. Hepatic and splenic margins not palpable. Normal bowel sounds x4. No pulsatile mass. MUSCULOSKELETAL: No obvious deformities. No clubbing. No cyanosis. No edema. Full range of motion. NEUROLOGICAL: Awake and alert. No obvious cranial nerve deficits. Motor grossly within normal limits. Normal speech. PSYCHIATRIC: Appropriate mood and affect; insight and judgment normal. Data Data Last Documented VS Vital Signs Date Time Temp Pulse Resp B/P (MAP) Pulse Ox O2 Delivery O2 Flow Rate FiO2 04/05/18 17:26 04/05/18 16:42 64 17 75 22 75 18 04/05/18 13:13 99 Room Air 04/05/18 12:51 97.8 Orders Orders Complete Blood Count With Diff (04/05/18 13:13) Comprehensive Metabolic Panel (04/05/18 13:13) Lipase (04/05/18 13:13) Prothrombin Time / Inr (Pt) (04/05/18 13:13) Act Partial Throm Time (Ptt) (04/05/18 13:13) Urinalysis - C+S If Indicated (04/05/18 13:13) Ct Abd/Pel W Iv Contrast(Rout) (04/05/18 13:13) Iv Access Insert/Monitor (04/05/18 13:13) Ecg Monitoring (04/05/18 13:13) Oximetry (04/05/18 13:13) Sodium Chloride 0.9% Flush (Ns Flush) (04/05/18 13:15) Orthostatic Vital Signs (04/05/18 15:08) Sodium Chlor 0.9% 1000 Ml Inj (Ns 1000 M (04/05/18 15:45) Ed Discharge Order (04/05/18 16:53) Labs Laboratory Tests Test 04/05/18 13:22 04/05/18 15:25 White Blood Count 9.7 TH/MM3 Red Blood Count 4.22 MIL/MM3 Hemoglobin 13.2 GM/DL Hematocrit 38.4 % Mean Corpuscular Volume 91.0 FL Mean Corpuscular Hemoglobin 31.4 PG Mean Corpuscular Hemoglobin Concent 34.5 % Red Cell Distribution Width 12.8 % Platelet Count 293 TH/MM3 Mean Platelet Volume 7.1 FL Neutrophils (%) (Auto) 74.3 % Lymphocytes (%) (Auto) 15.2 % Monocytes (%) (Auto) 8.5 % Eosinophils (%) (Auto) 1.5 % Basophils (%) (Auto) 0.5 % Neutrophils # (Auto) 7.2 TH/MM3 Lymphocytes # (Auto) 1.5 TH/MM3 Monocytes # (Auto) 0.8 TH/MM3 Eosinophils # (Auto) 0.1 TH/MM3 Basophils # (Auto) 0.0 TH/MM3 CBC Comment DIFF FINAL Differential Comment Prothrombin Time 11.4 SEC Prothromb Time International Ratio 1.1 RATIO Activated Partial Thromboplast Time 28.2 SEC Blood Urea Nitrogen 9 MG/DL Creatinine 1.66 MG/DL Random Glucose 128 MG/DL Total Protein 6.9 GM/DL Albumin 3.5 GM/DL Calcium Level 8.8 MG/DL Alkaline Phosphatase 52 U/L Aspartate Amino Transf (AST/SGOT) 15 U/L Alanine Aminotransferase (ALT/SGPT) 19 U/L Total Bilirubin 0.3 MG/DL Sodium Level 134 MEQ/L Potassium Level 3.9 MEQ/L Chloride Level 103 MEQ/L Carbon Dioxide Level 20.0 MEQ/L Anion Gap 11 MEQ/L Estimat Glomerular Filtration Rate 40 ML/MIN Lipase 56 U/L Urine Color YELLOW Urine Turbidity HAZY Urine pH 6.0 Urine Specific [place] 1.010 Urine Protein NEG mg/dL Urine Glucose (UA) NEG mg/dL Urine Ketones NEG mg/dL Urine Occult Blood MOD Urine Nitrite NEG Urine Bilirubin NEG Urine Urobilinogen LESS THAN 2 mg/dL Urine Leukocyte Esterase TRACE Urine RBC 13 /hpf Urine WBC 2 /hpf Urine Squamous Epithelial Cells <1 /hpf Microscopic Urinalysis Comment CULT NOT INDICATED MDM Medical Decision Making Medical Screen Exam Complete: Yes Emergency Medical Condition: Yes Interpretation(s) Last Impressions Abdomen/Pelvis CT 04/05/18 1313 Signed Impressions: CONCLUSION: 1. Air-fluid levels scattered throughout bowel consistent with history of diar shannon 2. No inflammatory changes 3. Diverticuli sigmoid colon without free air. Differential Diagnosis UTI, diverticulitis, small bowel obstruction, viral syndrome, dehydration, metabolic disturbance Narrative Course Patient looks great, non-ill appearing. The patient was given IVF and feels much improved and is ready for discharge. The patient is tolerating fluids and is well hydrated at discharge. I suspect viral etiology by history and exam. The abdominal exam is unremarkable. There are normal active bowel sounds without any masses, distension, or significant tenderness. There is no reported blood in the stool. No clinical evidence by history, exam, or evaluation to suspect appendicitis, obstruction or other acute surgical abdomen at this time. The patient was tolerating fluids at time of discharge. It was discussed with the patient, diagnosis, and plan of care and to follow up with the patients primary physician within the next 2-3 days. The parent was also informed that they may return here for follow up if they are unable to follow up with their doctor. Abdominal warnings were discussed. The patient was instructed to return sooner if the patient worsens in anyway, especially if the abdominal pain changes, the patient experiences more pain, is not tolerating fluids, increased diarrhea, bloody stools, the patient develops persistent vomiting, has decreased activity, or dizziness with standing or as needed. The patient agreed with plan. Patient in no obvious distress upon re-evaluation. All pertinent laboratory/ Radiology result(s) discussed with patient. Discussed patient with Dr. Zendejas prior discharge, who saw and evaluated the patient and is in agreement with plan of care and disposition. Any questions/concerns in reference to patient diagnosis/condition discussed and clarified prior to patient's discharge. Reinforced sheer importance of close follow up with patient's primary physician or primary care clinic. Instructed patient to return to ED immediately, if symptoms return/worsen. Patient showed understanding of above instructions. Further instructions and recommendations were detailed in discharge paperwork. Patient ambulated without difficulty out of ED at discharge. Diagnosis Primary Impression: Diarrhea Qualified Codes: R19.7 - Diarrhea, unspecified Additional Impression: Orthostatic hypotension Patient Instructions: Acute Diarrhea (ED), General Instructions, Hypotension ( ED) Additional Instructions: Follow-up with your primary care physician in 2-3 days for reevaluation. Finish antibiotics as prescribed by your primary care doctor. Drink plenty of non-caffeinated and nonalcoholic fluids. Return to the emergency department if symptoms get worse. Disposition: 01 DISCHARGE HOME Condition: Stable Danilo Saldana Apr 05, 2018 13:16
[2018-04-05] MEDS ORDERED: CARV12.52 PO (13:22)
[2018-04-05] MEDS ORDERED: TH CTAB3 (13:22)
[2018-04-05] MEDS ORDERED: ASCO500T PO (13:22)
[2018-04-05] MEDS ORDERED: GLIP5TAB8 PO (13:22)
[2018-04-05] MEDS ORDERED: METR1TAB76 PO (13:22)
[2018-04-05] MEDS ORDERED: PRAV40TA2 PO (13:22)
[2018-04-05] MEDS ORDERED: SULF1TAB23 PO (13:22)
[2018-04-05] MEDS ORDERED: FERR325T18 PO (13:22)
[2018-04-05 13:38] LABS: AUTOMATED NEUTROPHIL # 7.2 TH/MM3 (1.8-7.7); BASOPHIL % 0.5 % (0.0-2.0); EOSINOPHIL # 0.1 TH/MM3 (0-0.4); EOSINOPHIL % 1.5 % (0.0-4.0); HEMATOCRIT 38.4 % (39.0-51.0); HEMOGLOBIN 13.2 GM/DL (13.0-17.0); LYMPH % 15.2 % (9.0-44.0); LYMPHOCYTE # 1.5 TH/MM3 (1.0-4.8); MEAN CORPUSCULAR HEMOGLOBIN 31.4 PG (27.0-34.0); MEAN CORPUSCULAR HGB CONC 34.5 % (32.0-36.0); MEAN PLATELET VOLUME 7.1 FL (7.0-11.0); MONO % 8.5 % (0.0-8.0); MONOCYTE # 0.8 TH/MM3 (0-0.9); NEUT % 74.3 % (16.0-70.0); PLATELET COUNT 293 TH/MM3 (150-450); RED BLOOD COUNT 4.22 MIL/MM3 (4.50-5.90); RED CELL DISTRIBUTION WIDTH 12.8 % (11.6-17.2); WHITE BLOOD COUNT 9.7 TH/MM3 (4.0-11.0)
[2018-04-05 13:48] LABS: INTERNATIONAL NORMALIZED RATIO 1.1 RATIO; PROTHROMBIN TIME - PATIENT 11.4 SEC (9.8-11.6)
[2018-04-05 14:15] LABS: ALBUMIN 3.5 GM/DL (3.4-5.0); ALKALINE PHOSPHATASE 52 U/L (45-117); ALT (GPT) 19 U/L (12-78); AST (GOT) 15 U/L (15-37); BLOOD UREA NITROGEN 9 MG/DL (7-18); CALCIUM 8.8 MG/DL (8.5-10.1); CHLORIDE 103 MEQ/L (98-107); CREATININE 1.66 MG/DL (0.60-1.30); GLOMERULAR FILTRATION RATE 40 ML/MIN (>89); GLUCOSE,RANDOM 128 MG/DL (74-106); SODIUM (NA) 134 MEQ/L (136-145); TOTAL BILIRUBIN ADULT 0.3 MG/DL (0.2-1.0); TOTAL PROTEIN 6.9 GM/DL (6.4-8.2)
[2018-04-05] MEDS ORDERED: IODIXANOL 320 MG/ML 10 ML VIAL (for Rad CT) IVCONTRAST ONE (14:20)
--- NOTE | 2018-04-05 15:02 | RADRPT ---
EXAM DATE: 04/05/2018 2:53 PM EDT AGE/SEX: 82 years / Male INDICATIONS: Lower abdominal pain. Diarrhea. CLINICAL DATA: This is the patient's initial encounter. Patient reports that signs and symptoms have been present for 4 - 6 days and indicates a pain score of 4/10. MEDICAL/SURGICAL HISTORY: Cardiovascular disease. Hypertension. Gastroesophageal reflux disea se. Diabetes. . Colon resection. ORAL CONTRAST: No oral contrast ingested. RADIATION DOSE: 6.68 CTDI (mGy) COMPARISON: [facility] [place], CT ABDOMEN & PELVIS W CONTRAST, 06/06/2015. . TECHNIQUE: Multiple contiguous axial images were obtained through the abdomen and pelvis following b olus infusion of 46 ml Visipaque 320 (iodixanol) nonionic water-soluble contrast as a single exam d ose. No oral contrast ingested. Using automated exposure control and adjustment of the mA and/or kV according to patient size, the radiation dose was kept as low as reasonably achievable to obtain opti mal diagnostic quality images. FINDINGS: Lower lungs are clear. Liver is free of focal defects Small calcified gallstones in a benign-appearing gallbladder Pancreas and spleen unremarkable Scattered air-fluid levels in small bowel. Scattered air-fluid levels in colon Large 8 cm right renal cyst renal cyst. 2 small left renal cyst. No stone or obstruction The pelvis scattered air-fluid levels are seen nonspecific large and small bowel. Diverticulitis sigm oid colon without diverticulitis Bladder unremarkable Prostate prominent than the large TURP defect. Review of bone windows reveals degenerative changes in the lower lumbar spine and both SI joints. CONCLUSION: 1. Air-fluid levels scattered throughout bowel consistent with history of diarrhea 2. No inflammatory changes 3. Diverticuli sigmoid colon without free air. Electronically signed by: Eligio Conti MD 04/05/2018 3:00 PM EDT
[2018-04-05 15:05] VITALS: BP 189/88; PULSE 64
[2018-04-05 15:27] VITALS: BP_SYST 139; BP_SYST 161; BP_SYST 162; BP_DIAS 63; BP_DIAS 69; BP_DIAS 74; RESP 17; RESP 18; RESP 19
[2018-04-05] MEDS ORDERED: SODIUM CHLOR 0.9% 1000 ML INJ 1,000 ML IV ONE (15:45)
[2018-04-05 16:21] LABS: BILIRUBIN, URINE NEG (NEG); BLOOD, URINE MOD (NEG); GLUCOSE,URINE NEG (NEG); KETONE, URINE NEG (NEG); NITRITE,URINE NEG (NEG); SQUAMOUS EPITHELIAL CELL URINE <1 /hpf (0-5); URINE COLOR YELLOW (YELLW/STRAW); URINE LEUKOCYTE ESTERASE TRACE (NEG)
[2018-04-05 16:42] VITALS: BP_SYST 159; BP_SYST 165; BP_DIAS 67; BP_DIAS 76; BP_DIAS 77; RESP 17; RESP 18; RESP 22
--- NOTE | 2018-04-05 16:57 | PD ---
Data Data Last Documented VS Vital Signs Date Time Temp Pulse Resp B/P (MAP) Pulse Ox O2 Delivery O2 Flow Rate FiO2 04/05/18 16:42 64 17 165/77 (106) 75 22 165/76 (105) 75 18 159/67 (97) 04/05/18 13:13 99 Room Air 04/05/18 12:51 97.8 Orders Orders Complete Blood Count With Diff (04/05/18 13:13) Comprehensive Metabolic Panel (04/05/18 13:13) Lipase (04/05/18 13:13) Prothrombin Time / Inr (Pt) (04/05/18 13:13) Act Partial Throm Time (Ptt) (04/05/18 13:13) Urinalysis - C+S If Indicated (04/05/18 13:13) Ct Abd/Pel W Iv Contrast(Rout) (04/05/18 13:13) Iv Access Insert/Monitor (04/05/18 13:13) Ecg Monitoring (04/05/18 13:13) Oximetry (04/05/18 13:13) Sodium Chloride 0.9% Flush (Ns Flush) (04/05/18 13:15) Orthostatic Vital Signs (04/05/18 15:08) Sodium Chlor 0.9% 1000 Ml Inj (Ns 1000 M (04/05/18 15:45) Ed Discharge Order (04/05/18 16:53) Labs Laboratory Tests Test 04/05/18 13:22 04/05/18 15:25 White Blood Count 9.7 TH/MM3 Red Blood Count 4.22 MIL/MM3 Hemoglobin 13.2 GM/DL Hematocrit 38.4 % Mean Corpuscular Volume 91.0 FL Mean Corpuscular Hemoglobin 31.4 PG Mean Corpuscular Hemoglobin Concent 34.5 % Red Cell Distribution Width 12.8 % Platelet Count 293 TH/MM3 Mean Platelet Volume 7.1 FL Neutrophils (%) (Auto) 74.3 % Lymphocytes (%) (Auto) 15.2 % Monocytes (%) (Auto) 8.5 % Eosinophils (%) (Auto) 1.5 % Basophils (%) (Auto) 0.5 % Neutrophils # (Auto) 7.2 TH/MM3 Lymphocytes # (Auto) 1.5 TH/MM3 Monocytes # (Auto) 0.8 TH/MM3 Eosinophils # (Auto) 0.1 TH/MM3 Basophils # (Auto) 0.0 TH/MM3 CBC Comment DIFF FINAL Differential Comment Prothrombin Time 11.4 SEC Prothromb Time International Ratio 1.1 RATIO Activated Partial Thromboplast Time 28.2 SEC Blood Urea Nitrogen 9 MG/DL Creatinine 1.66 MG/DL Random Glucose 128 MG/DL Total Protein 6.9 GM/DL Albumin 3.5 GM/DL Calcium Level 8.8 MG/DL Alkaline Phosphatase 52 U/L Aspartate Amino Transf (AST/SGOT) 15 U/L Alanine Aminotransferase (ALT/SGPT) 19 U/L Total Bilirubin 0.3 MG/DL Sodium Level 134 MEQ/L Potassium Level 3.9 MEQ/L Chloride Level 103 MEQ/L Carbon Dioxide Level 20.0 MEQ/L Anion Gap 11 MEQ/L Estimat Glomerular Filtration Rate 40 ML/MIN Lipase 56 U/L Urine Color YELLOW Urine Turbidity HAZY Urine pH 6.0 Urine Specific [place] 1.010 Urine Protein NEG mg/dL Urine Glucose (UA) NEG mg/dL Urine Ketones NEG mg/dL Urine Occult Blood MOD Urine Nitrite NEG Urine Bilirubin NEG Urine Urobilinogen LESS THAN 2 mg/dL Urine Leukocyte Esterase TRACE Urine RBC 13 /hpf Urine WBC 2 /hpf Urine Squamous Epithelial Cells <1 /hpf Microscopic Urinalysis Comment CULT NOT INDICATED MDM Supervised Visit with GILMAR: Yes Narrative Course I, Dr. Zendejas, have reviewed the advance practice practitioner's documentation and am in agreement, met with the patient face to face, made the diagnosis, and the medical decision making was done by me. *My assessment and Findings: Extensive workup was done which I reviewed with the patient. He is feeling improved. He did have some diarrhea and abdominal cramping. Labs and CT do not show any emergent findings. Stable for [facility] follow[facility]. Diagnosis Primary Impression: Diarrhea Qualified Codes: R19.7 - Diarrhea, unspecified Additional Impression: Orthostatic hypotension Patient Instructions: General Instructions, Acute Diarrhea (ED), Hypotension ( ED) Additional Instruction: Follow-up with your primary care physician in 2-3 days for reevaluation. Finish antibiotics as prescribed by your primary care doctor. Drink plenty of non-caffeinated and nonalcoholic fluids. Return to the emergency department if symptoms get worse. Disposition: 01 DISCHARGE HOME Condition: Stable Mega Zendejas MD Apr 05, 2018 16:57
== END 2018-04-05 17:26 | disposition home or self-care (01) ==
LOC: NEPE 12:43
DX: R19.7 Diarrhea, unspecified (principal); I95.1 Orthostatic hypotension; R10.9 Unspecified abdominal pain; I10 Essential (primary) hypertension; E11.9 Type 2 diabetes mellitus without complications; K57.32 Diverticulitis of large intestine without perforation or abscess without bleeding; K21.9 Gastro-esophageal reflux disease without esophagitis; Z95.5 Presence of coronary angioplasty implant and graft; Z90.49 Acquired absence of other specified parts of digestive tract; Z88.5 Allergy status to narcotic agent; Z88.0 Allergy status to penicillin; Z79.899 Other long term (current) drug therapy
CPT/HCPCS: 74177; 80053; 81001; 83690; 85025; 85610; 85730; 99285; J7030; Q9967